=== PATIENT | male | born 1960 | race Two or more races ===

== ENCOUNTER 2020-12-18 16:08 | Inpatient (IN) | payer OTHER ==
[~2020-12-18] VITALS: Ht 165.1 cm; Wt 97.0 kg
[~2020-12-18 16:08] MED LIST: ARIP2TAB PO; HAL5T PO; MELO1TAB56; QUET200T4 PO; VENL75CA78; ZOLP10TA
[2020-12-18 17:22] LABS: Basophils # (auto) 0 10 ^3/uL (0-0.2); Basophils % (auto) 0.3 % (0.0-2.0); Eosinophils # (auto) 0.1 10 ^3/uL (0-0.8); Eosinophils % (auto) 1.6 % (0.0-7.0); Hematocrit 41.5 % (41.0-53.0); Hemoglobin 14.2 g/dL (13.5-17.5); Lymphocytes # (auto) 2.1 10 ^3/uL (0.4-5.4); Lymphocytes % (auto) 34.6 % (10.0-50.0); Mean Corpuscular Hemoglobin 31.6 pg (28.0-32.0); Mean Corpuscular Hgb Conc. 34.1 g/dL (32.0-36.0); Mean Corpuscular Volume 92.8 fL (80.0-100.0); Monocytes # (auto) 0.4 10 ^3/uL (0-1.3); Monocytes % (auto) 6.2 % (0.0-12.0); Neutrophils # (auto) 3.5 10 ^3/uL (1.6-8.6); Neutrophils % (auto) 57.3 % (37.0-80.0); Platelet Count (auto) 187 10^3/uL (140-450); Red Blood Cells 4.48 10^6/uL (4.5-5.90)
[2020-12-18] MEDS ORDERED: NITROGLYCERIN 0.4 MG SL TAB SL ONE (17:30)
[2020-12-18] MEDS ORDERED: ASPirin 81 mg TAB PO ONE (17:30)
[2020-12-18 17:42] LABS: Albumin 3.3 g/dL (3.4-5.0); Anion Gap 8 (5-15); BUN/Creatinine Ratio 14.3; Blood Urea Nitrogen 18 mg/dL (7-18); Calcium 8.9 mg/dL (8.5-10.1); Carbon Dioxide 24 mmol/L (21-32); Chloride 104 mmol/L (98-107); GFR African American 76 mL/min; GFR Non-African American 62 mL/min; Glucose 149 mg/dL (74-106); Magnesium 2.2 mg/dL (1.6-2.6); Potassium 3.6 mmol/L (3.5-5.1); Sodium 136 mmol/L (136-145)
[2020-12-18 17:51] LABS: Alanine Aminotransferase 151 U/L (16-61); Alkaline Phosphatase 111 U/L (45-117); Aspartate Aminotransferase 107 U/L (15-37); Bilirubin, Total 0.3 mg/dL (0.2-1.0); Total Protein 7.4 g/dL (6.4-8.2)
[2020-12-18] MEDS ORDERED: ONDANSETRON HCL 4 MG/2 ML VIAL IV PRN (18:15)
[2020-12-18] MEDS ORDERED: MORPHINE SULF INJ 2 MG/ML SYRINGE 1ML IV PRN (18:15)
[2020-12-18] MEDS ORDERED: ACETAMINOPHEN 500 MG TAB PO PRN (18:15)
[2020-12-18] MEDS ORDERED: DOCUSATE CALCIUM 240 MG CAP PO PRN (18:15)
[2020-12-18] MEDS ORDERED: LORazepam 0.5 MG TAB PO PRN (18:15)
[2020-12-18] MEDS ORDERED: NITROGLYCERIN 0.4 MG SL TAB SL PRN (18:15)
[2020-12-18] MEDS ORDERED: LABETALOL HCL 5 MG/ML 4ML SYRINGE IV PRN (18:15)
[2020-12-18] MEDS ORDERED: QUEtiapine FUMARATE 100 MG TAB PO SCH (22:00)
[2020-12-19] MEDS ORDERED: ARIP2TAB PO (06:10)
[2020-12-19] MEDS ORDERED: FLUO60TA7 PO (06:10)
[2020-12-19 08:04] LABS: Urine WBC None Seen /hpf (0 - 3)
[2020-12-19 08:29] LABS: Amphetamine Screen, Urine NEGATIVE (NEGATIVE); Barbiturate Scree,Urine NEGATIVE (NEGATIVE); Benzodiazephine Screen, Urine NEGATIVE (NEGATIVE); Cannabinoid Screen, Urine NEGATIVE (NEGATIVE); Cocaine Screen, Urine NEGATIVE (NEGATIVE); Opiate Scree,Urine NEGATIVE (NEGATIVE); Phencyclidine Screen, Urine NEGATIVE (NEGATIVE)
[2020-12-19 08:36] LABS: Urine Bacteria NONE SEEN /hpf (None Seen); Urine Blood Negative /uL (Negative)
[2020-12-19 09:22] LABS: Basophils # (auto) 0 10 ^3/uL (0-0.2); Basophils % (auto) 0.4 % (0.0-2.0); Eosinophils # (auto) 0.1 10 ^3/uL (0-0.8); Eosinophils % (auto) 2.7 % (0.0-7.0); Hemoglobin 14.1 g/dL (13.5-17.5); Lymphocytes # (auto) 2.1 10 ^3/uL (0.4-5.4); Lymphocytes % (auto) 41.3 % (10.0-50.0); Mean Corpuscular Hemoglobin 32.4 pg (28.0-32.0); Mean Corpuscular Hgb Conc. 35.1 g/dL (32.0-36.0); Mean Corpuscular Volume 92.2 fL (80.0-100.0); Monocytes # (auto) 0.4 10 ^3/uL (0-1.3); Monocytes % (auto) 7.8 % (0.0-12.0); Neutrophils # (auto) 2.5 10 ^3/uL (1.6-8.6); Neutrophils % (auto) 47.8 % (37.0-80.0); Platelet Count (auto) 174 10^3/uL (140-450); Red Blood Cells 4.34 10^6/uL (4.5-5.90); White Blood Cell 5.2 10^3/uL (4.4-10.8)
[2020-12-19 09:27] LABS: Anion Gap 4 (5-15); Blood Urea Nitrogen 17 mg/dL (7-18); Calcium 8.2 mg/dL (8.5-10.1); Carbon Dioxide 27 mmol/L (21-32); Chloride 109 mmol/L (98-107); Glucose 93 mg/dL (74-106); Potassium 3.6 mmol/L (3.5-5.1); Sodium 140 mmol/L (136-145)
[2020-12-19 09:32] VITALS: BP 125/79
[2020-12-19 09:33] LABS: Alanine Aminotransferase 144 U/L (16-61); Alkaline Phosphatase 103 U/L (45-117); Aspartate Aminotransferase 94 U/L (15-37); BUN/Creatinine Ratio 17.5; Bilirubin, Total 0.5 mg/dL (0.2-1.0); Cholesterol 232 mg/dL (< 200); GFR African American 102 mL/min; GFR Non-African American 84 mL/min; HDL Cholesterol 44 mg/dL (40-59); LDL Cholesterol 151 mg/dL (< 100); Total Protein 7.2 g/dL (6.4-8.2); Triglycerides 219 mg/dL (< 150)
[2020-12-19] MEDS ORDERED: FLUO-125 PO (09:47)
[2020-12-19] MEDS: PANTOPRAZOLE 40 MG TAB PO SCH (09:48)
[2020-12-19] MEDS ORDERED: FLUoxetine HCL 20 MG CAP PO SCH (10:00)
[2020-12-19] MEDS ORDERED: ENOXAPARIN SOD 40 MG/0.4 ML SYRINGE SC SCH (10:00)
[2020-12-19] MEDS ORDERED: ASPirin 81 mg TAB PO ONE (11:45)
[2020-12-19] MEDS: QUEtiapine FUMARATE 100 MG TAB PO SCH ×2 (11:59→22:02)
[2020-12-19] MEDS: FLUoxetine HCL 20 MG CAP PO SCH (12:11)
[2020-12-19 12:48] VITALS: BP 129/82
[2020-12-19 17:21] VITALS: BP 112/85
[2020-12-19] MEDS: METOPROLOL TARTRATE 25 MG TAB PO SCH (22:01)
[2020-12-19] MEDS: ATORVASTATIN 20 MG TAB PO SCH (22:01)
[2020-12-19] MEDS: ENOXAPARIN SOD 100 MG/1 ML SYRINGE SC SCH (22:02)
[2020-12-19 22:30] VITALS: BP 128/82
[2020-12-20 05:00] VITALS: BP 117/74
[2020-12-20 06:43] LABS: Basophils # (auto) 0 10 ^3/uL (0-0.2); Basophils % (auto) 0.3 % (0.0-2.0); Eosinophils # (auto) 0.2 10 ^3/uL (0-0.8); Eosinophils % (auto) 3.3 % (0.0-7.0); Hematocrit 42.2 % (41.0-53.0); Hemoglobin 14.4 g/dL (13.5-17.5); Lymphocytes # (auto) 2.6 10 ^3/uL (0.4-5.4); Lymphocytes % (auto) 46.4 % (10.0-50.0); Mean Corpuscular Hemoglobin 31.9 pg (28.0-32.0); Mean Corpuscular Hgb Conc. 34.2 g/dL (32.0-36.0); Mean Corpuscular Volume 93.2 fL (80.0-100.0); Monocytes # (auto) 0.4 10 ^3/uL (0-1.3); Neutrophils # (auto) 2.4 10 ^3/uL (1.6-8.6); Platelet Count (auto) 184 10^3/uL (140-450); Red Blood Cells 4.53 10^6/uL (4.5-5.90); Red Cell Distribution Width 14.1 % (11.8-14.3); White Blood Cell 5.5 10^3/uL (4.4-10.8)
[2020-12-20 08:17] LABS: Anion Gap 5 (5-15); BUN/Creatinine Ratio 18.9; Blood Urea Nitrogen 20 mg/dL (7-18); Calcium 8.7 mg/dL (8.5-10.1); Carbon Dioxide 25 mmol/L (21-32); Chloride 109 mmol/L (98-107); GFR African American 92 mL/min; GFR Non-African American 76 mL/min; Glucose 103 mg/dL (74-106); Potassium 3.9 mmol/L (3.5-5.1); Sodium 139 mmol/L (136-145)
[2020-12-20 09:00] VITALS: BP 117/75
[2020-12-20] MEDS: FLUoxetine HCL 20 MG CAP PO SCH (10:48)
[2020-12-20] MEDS: QUEtiapine FUMARATE 100 MG TAB PO SCH ×2 (10:48→21:36)
[2020-12-20] MEDS: ENOXAPARIN SOD 100 MG/1 ML SYRINGE SC SCH ×2 (10:48→21:36)
[2020-12-20] MEDS: PANTOPRAZOLE 40 MG TAB PO SCH (10:48)
[2020-12-20] MEDS: ASPirin 81 mg TAB PO SCH (10:48)
[2020-12-20] MEDS: METOPROLOL TARTRATE 25 MG TAB PO SCH ×2 (10:49→21:36)
[2020-12-20 13:00] VITALS: BP 123/64
[2020-12-20 17:26] VITALS: BP 142/72
[2020-12-20] MEDS: ATORVASTATIN 20 MG TAB PO SCH (21:36)
[2020-12-20 22:00] VITALS: BP 131/80
[2020-12-21 05:00] VITALS: BP 139/88
[2020-12-21 06:58] LABS: Basophils # (auto) 0 10 ^3/uL (0-0.2); Basophils % (auto) 0.4 % (0.0-2.0); Eosinophils # (auto) 0.2 10 ^3/uL (0-0.8); Eosinophils % (auto) 3.2 % (0.0-7.0); Hematocrit 41.7 % (41.0-53.0); Hemoglobin 14.5 g/dL (13.5-17.5); Lymphocytes # (auto) 2.6 10 ^3/uL (0.4-5.4); Lymphocytes % (auto) 44.7 % (10.0-50.0); Mean Corpuscular Hemoglobin 32.2 pg (28.0-32.0); Mean Corpuscular Hgb Conc. 34.8 g/dL (32.0-36.0); Mean Corpuscular Volume 92.7 fL (80.0-100.0); Monocytes # (auto) 0.4 10 ^3/uL (0-1.3); Neutrophils # (auto) 2.6 10 ^3/uL (1.6-8.6); Neutrophils % (auto) 44.7 % (37.0-80.0); Nucleated Red Blood Cells % 0.1 %; Platelet Count (auto) 173 10^3/uL (140-450); Red Cell Distribution Width 14.2 % (11.8-14.3); White Blood Cell 5.8 10^3/uL (4.4-10.8)
[2020-12-21 07:13] LABS: INR 1.06 (0.9-1.15)
[2020-12-21 07:32] LABS: Potassium 3.9 mmol/L (3.5-5.1)
[2020-12-21 07:52] LABS: BUN/Creatinine Ratio 15.4; Bilirubin, Total 0.5 mg/dL (0.2-1.0); Calcium 8.4 mg/dL (8.5-10.1); Total Protein 7.2 g/dL (6.4-8.2)
[2020-12-21] MEDS ORDERED: ADENOSINE 82 MG in GIVE UN-DILUTED 0 ML IV STA (08:12)
[2020-12-21 08:38] VITALS: BP 121/84
[2020-12-21 08:51] VITALS: BP 117/75
[2020-12-21] MEDS: FLUoxetine HCL 20 MG CAP PO SCH (09:55)
[2020-12-21] MEDS: ASPirin 81 mg TAB PO SCH (09:55)
[2020-12-21] MEDS: QUEtiapine FUMARATE 100 MG TAB PO SCH ×2 (09:55→21:25)
[2020-12-21] MEDS: PANTOPRAZOLE 40 MG TAB PO SCH (09:56)
[2020-12-21] MEDS: METOPROLOL TARTRATE 25 MG TAB PO SCH ×2 (10:00→21:43)
[2020-12-21] MEDS: ENOXAPARIN SOD 100 MG/1 ML SYRINGE SC SCH ×2 (10:02→21:24)
[2020-12-21 10:40] LABS: Hepatitis A Ab IgM Negative; Hepatitis B Core IgM Negative
[2020-12-21 10:41] LABS: Hepatitis B Surface Antigen Negative (Negative); Hepatitis C Antibody Negative (Negative)
[2020-12-21 12:51] VITALS: BP 108/65
[2020-12-21 16:51] VITALS: BP 123/66
[2020-12-21] MEDS: ATORVASTATIN 20 MG TAB PO SCH (21:24)
[2020-12-21 22:00] VITALS: BP 149/58
[2020-12-22 05:00] VITALS: BP 115/72
[2020-12-22 09:00] VITALS: BP 123/76
[2020-12-22] MEDS: ASPirin 81 mg TAB PO SCH (09:52)
[2020-12-22] MEDS: PANTOPRAZOLE 40 MG TAB PO SCH (09:53)
[2020-12-22] MEDS: METOPROLOL TARTRATE 25 MG TAB PO SCH ×2 (09:53→22:00)
[2020-12-22] MEDS: FLUoxetine HCL 20 MG CAP PO SCH (09:54)
[2020-12-22] MEDS: QUEtiapine FUMARATE 100 MG TAB PO SCH ×2 (09:54→22:35)
[2020-12-22] MEDS: ENOXAPARIN SOD 100 MG/1 ML SYRINGE SC SCH ×2 (09:54→22:00)
[2020-12-22 13:00] VITALS: BP 121/72
[2020-12-22 16:28] LABS: Calcium 8.5 mg/dL (8.5-10.1); Potassium 4.3 mmol/L (3.5-5.1)
[2020-12-22 16:31] LABS: BUN/Creatinine Ratio 13.4; Bilirubin, Total 0.6 mg/dL (0.2-1.0); Total Protein 7.3 g/dL (6.4-8.2)
[2020-12-22 16:57] VITALS: BP 130/80
[2020-12-22 22:00] VITALS: BP 135/78
[2020-12-22] MEDS: ATORVASTATIN 20 MG TAB PO SCH (22:34)
[2020-12-23 05:12] VITALS: BP 121/78
[2020-12-23 06:54] LABS: Calcium 8.1 mg/dL (8.5-10.1); Potassium 3.9 mmol/L (3.5-5.1)
[2020-12-23 06:59] LABS: Bilirubin, Total 0.4 mg/dL (0.2-1.0); Total Protein 7.3 g/dL (6.4-8.2)
[2020-12-23] MEDS ORDERED: SODIUM CHL 0.9% 50 ML ONE (07:44)
[2020-12-23] MEDS ORDERED: ANGIOMAX 250 MG VIAL IV ONE (07:44)
[2020-12-23] MEDS ORDERED: fentaNYL CITRATE 100 MCG/2 ML VL ONE (07:44)
[2020-12-23] MEDS ORDERED: VERAPAMIL 2.5MG/ML INJ 2ML VIAL IV ONE (07:44)
[2020-12-23] MEDS ORDERED: MIDAZOLAM HCL 1MG/1ML-2 ML VIAL ONE (07:44)
[2020-12-23] MEDS ORDERED: HEPARIN SODIUM (PORCINE) 5000 UNITS/ML 1ML VIAL ONE (07:44)
[2020-12-23] MEDS ORDERED: LISINOPRIL 5 MG TAB PO SCH (10:00)
[2020-12-23] MEDS ORDERED: METOPROLOL TARTRATE 25 MG TAB PO SCH (10:00)
[2020-12-23] MEDS: ASPirin 81 mg TAB PO SCH (10:53)
[2020-12-23] MEDS: QUEtiapine FUMARATE 100 MG TAB PO SCH (10:56)
[2020-12-23] MEDS: PANTOPRAZOLE 40 MG TAB PO SCH (10:56)
[2020-12-23] MEDS: FLUoxetine HCL 20 MG CAP PO SCH (10:56)
[2020-12-23 12:00] VITALS: BP 123/80
[2020-12-23 16:00] VITALS: BP 125/70
[2020-12-23 16:14] VITALS: BP 115/69
== END 2020-12-23 17:35 | disposition home or self-care (01) | DRG 287 ==
LOC: ER 16:08 → TELE 18:04 → TELE-CENTR 12-19 04:55
PROVIDERS: ADMIT Family Medicine; ATTEND Internal Medicine
PROC: 4A023N7 Measurement of Cardiac Sampling and Pressure, Left Heart, Percutaneous Approach (ICD-10-PCS; principal; 2020-12-23)
PROC: B211YZZ Fluoroscopy of Multiple Coronary Arteries using Other Contrast (ICD-10-PCS; 2020-12-23)
PROC: B215YZZ Fluoroscopy of Left Heart using Other Contrast (ICD-10-PCS; 2020-12-23)
PROC: B240ZZ3 Ultrasonography of Single Coronary Artery, Intravascular (ICD-10-PCS; 2020-12-23)
DX: I25.10 Atherosclerotic heart disease of native coronary artery without angina pectoris (principal); E44.0 Moderate protein-calorie malnutrition; E78.5 Hyperlipidemia, unspecified; F25.9 Schizoaffective disorder, unspecified; F10.11 Alcohol abuse, in remission; G47.00 Insomnia, unspecified; I12.9 Hypertensive chronic kidney disease with stage 1 through stage 4 chronic kidney disease, or unspecified chronic kidney disease; E66.01 Morbid (severe) obesity due to excess calories; Z20.822 Contact with and (suspected) exposure to COVID-19; Z82.49 Family history of ischemic heart disease and other diseases of the circulatory system; N18.9 Chronic kidney disease, unspecified; Z68.36 Body mass index [BMI] 36.0-36.9, adult
CPT/HCPCS: 36415; 71046; 78452; 80048; 80053; 80061; 80074; 80307; 81001; 83036; 83735; 84443; 84484; 85025; 85610; 87426; 93005; 93017; 93306; 93458; 99152; 99153; C1887; G0378; J0153; J2250

== ENCOUNTER 2021-05-17 13:52 | Inpatient (IN) | payer MEDICARE, OTHER ==
[~2021-05-17] VITALS: Ht 165.1 cm; Wt 89.7 kg
[~2021-05-17 13:52] MED LIST changes: +FLUO-125 PO; -HAL5T PO; -MELO1TAB56; -VENL75CA78
[2021-05-17] MEDS ORDERED: ACCU-CHEK COMFORT CURVE STRIP VI ONE (14:15)
[2021-05-17 14:35] LABS: Basophils # (auto) 0 10 ^3/uL (0-0.2); Basophils % (auto) 0.1 % (0.0-2.0); Eosinophils # (auto) 0 10 ^3/uL (0-0.8); Hematocrit 42.3 % (41.0-53.0); Hemoglobin 14.8 g/dL (13.5-17.5); Lymphocytes # (auto) 1.1 10 ^3/uL (0.4-5.4); Lymphocytes % (auto) 12.1 % (10.0-50.0); Mean Corpuscular Hemoglobin 31.4 pg (28.0-32.0); Mean Corpuscular Hgb Conc. 34.9 g/dL (32.0-36.0); Mean Corpuscular Volume 89.9 fL (80.0-100.0); Monocytes # (auto) 0.4 10 ^3/uL (0-1.3); Monocytes % (auto) 4.9 % (0.0-12.0); Neutrophils # (auto) 7.3 10 ^3/uL (1.6-8.6); Neutrophils % (auto) 82.9 % (37.0-80.0); White Blood Cell 8.8 10^3/uL (4.4-10.8)
[2021-05-17 15:00] LABS: Alanine Aminotransferase 91 U/L (16-61); Albumin 3.1 g/dL (3.4-5.0); Anion Gap 10 (5-15); Aspartate Aminotransferase 138 U/L (15-37); BUN/Creatinine Ratio 9.5; Blood Urea Nitrogen 23 mg/dL (7-18); Calcium 8.3 mg/dL (8.5-10.1); Carbon Dioxide 19 mmol/L (21-32); Chloride 106 mmol/L (98-107); GFR African American 36 mL/min; GFR Non-African American 30 mL/min; Glucose 118 mg/dL (74-106); Potassium 3.9 mmol/L (3.5-5.1); Sodium 135 mmol/L (136-145)
[2021-05-17 15:04] LABS: Lactic Acid w/Reflex 2.2 mmol/L (0.4-2.0)
[2021-05-17 15:07] LABS: Alkaline Phosphatase 84 U/L (45-117); Total Protein 7.7 g/dL (6.4-8.2)
[2021-05-17] MEDS ORDERED: SODIUM CHLORIDE 0.9% 1,000 ML IV ONE (17:00)
[2021-05-17] MEDS ORDERED: NITROGLYCERIN 0.4 MG SL TAB SL PRN (17:00)
[2021-05-17] MEDS ORDERED: MORPHINE SULF INJ 2 MG/ML SYRINGE 1ML IV PRN (17:00)
[2021-05-17] MEDS ORDERED: LORazepam 2MG/ML-1ML VIAL IV PRN (17:00)
[2021-05-17] MEDS ORDERED: LORazepam 2MG/ML-1ML VIAL IV ONE (17:00)
[2021-05-17] MEDS ORDERED: cefTRIAXone 1GM/50ML D5W 50 ML IV ONE (17:15)
[2021-05-17 17:35] LABS: Urine Bacteria FEW /hpf (None Seen); Urine Blood 3+ /uL (Negative); Urine Hyaline Cast MANY /lpf (0 - 2); Urine Mucus FEW (None Seen); Urine Specific Gravity 1.023 (1.001-1.035); Urine WBC 6 /hpf (0 - 3)
[2021-05-17 17:50] LABS: Amphetamine Screen, Urine NEGATIVE (NEGATIVE); Barbiturate Scree,Urine NEGATIVE (NEGATIVE); Cannabinoid Screen, Urine NEGATIVE (NEGATIVE); Cocaine Screen, Urine POSITIVE (NEGATIVE); Opiate Scree,Urine NEGATIVE (NEGATIVE); Phencyclidine Screen, Urine NEGATIVE (NEGATIVE)
[2021-05-17 17:56] LABS: Thyroid Stimulating Hormone 0.62 uIU/mL (0.358-3.74)
[2021-05-17 17:58] LABS: Benzodiazephine Screen, Urine NEGATIVE (NEGATIVE)
[2021-05-17] MEDS ORDERED: REMDESIVIR PER PHARMACY 0 ML IV SCH (18:00)
[2021-05-17] MEDS ORDERED: IVERMECTIN 3 MG TAB PO ONE (18:13)
[2021-05-17] MEDS ORDERED: HALOPERIDOL LACTATE 5 MG/ML INJ VIAL IM ONE (18:15)
[2021-05-17] MEDS: DexAMETHasone SOD PHOS 10MG/1ML VIAL INJ IV SCH (18:25)
[2021-05-17] MEDS ORDERED: AZITHROMYCIN 500MG/ 250ML 250 ML IV ONE (18:30)
[2021-05-17] MEDS: LORazepam 2MG/ML-1ML VIAL IV PRN ×2 (18:42→23:46)
[2021-05-17] MEDS: ASCORBIC ACID 1,000 MG TAB PO SCH (22:11)
[2021-05-17] MEDS: CHOLECALCIFEROL (VITD3) 2,000 UNIT CAP/TAB PO SCH (22:11)
[2021-05-17] MEDS: ZINC SULFATE 220mg CAP or TAB PO SCH (22:11)
[2021-05-17] MEDS: ENOXAPARIN SOD 30 MG/0.3 ML SYRINGE SC SCH (22:12)
[2021-05-17] MEDS: ALBUTEROL SULF HFA 90MCG INH 200DOSE IN PRN (22:14)
[2021-05-17 23:18] VITALS: BP 156/90
[2021-05-18] VITALS (7 sets, daily range): BP systolic 143–158; BP diastolic 72–97
[2021-05-18] MEDS: LORazepam 2MG/ML-1ML VIAL IV PRN (03:19)
[2021-05-18 06:45] LABS: Basophils # (auto) 0 10 ^3/uL (0-0.2); Basophils % (auto) 0.2 % (0.0-2.0); Eosinophils # (auto) 0 10 ^3/uL (0-0.8); Hematocrit 40.4 % (41.0-53.0); Hemoglobin 14.2 g/dL (13.5-17.5); Lymphocytes # (auto) 0.6 10 ^3/uL (0.4-5.4); Lymphocytes % (auto) 8.4 % (10.0-50.0); Mean Corpuscular Hemoglobin 31.6 pg (28.0-32.0); Mean Corpuscular Hgb Conc. 35.1 g/dL (32.0-36.0); Mean Corpuscular Volume 89.9 fL (80.0-100.0); Monocytes # (auto) 0.4 10 ^3/uL (0-1.3); Monocytes % (auto) 4.9 % (0.0-12.0); Neutrophils # (auto) 6.5 10 ^3/uL (1.6-8.6); Neutrophils % (auto) 86.5 % (37.0-80.0); Red Blood Cells 4.49 10^6/uL (4.5-5.90); White Blood Cell 7.5 10^3/uL (4.4-10.8)
[2021-05-18 07:04] LABS: Albumin 2.9 g/dL (3.4-5.0); Calcium 8.4 mg/dL (8.5-10.1); Potassium 3.4 mmol/L (3.5-5.1)
[2021-05-18 07:09] LABS: Bilirubin, Total 0.9 mg/dL (0.2-1.0); Total Protein 7.6 g/dL (6.4-8.2)
[2021-05-18 07:12] LABS: BUN/Creatinine Ratio 16.4
[2021-05-18] MEDS: cefTRIAXone 1GM/50ML D5W 50 ML IV SCH (08:54)
[2021-05-18] MEDS: ASCORBIC ACID 1,000 MG TAB PO SCH (08:55)
[2021-05-18] MEDS: ENOXAPARIN SOD 30 MG/0.3 ML SYRINGE SC SCH (08:55)
[2021-05-18] MEDS: CHOLECALCIFEROL (VITD3) 2,000 UNIT CAP/TAB PO SCH (08:55)
[2021-05-18] MEDS: DexAMETHasone SOD PHOS 10MG/1ML VIAL INJ IV SCH (08:55)
[2021-05-18] MEDS: ZINC SULFATE 220mg CAP or TAB PO SCH (08:56)
[2021-05-18] MEDS ORDERED: AZITHROMYCIN 500MG/ 250ML 250 ML IV SCH (10:00)
[2021-05-18] MEDS: FOLIC ACID 1 MG TAB PO SCH (10:00)
[2021-05-18] MEDS: MULTIPLE VITAMIN TAB PO SCH (10:00)
[2021-05-18] MEDS: THIAMINE 100mg/ml INJ (200mg/2ml VIAL) IV SCH (13:40)
[2021-05-18] MEDS ORDERED: REMDESIVIR 200 MG in NS 210ml LOADING DOSE ADULT IV ONE (15:00)
[2021-05-18] MEDS ORDERED: REMDESIVIR PER PHARMACY 0 ML IV SCH (16:45)
[2021-05-18] MEDS: Ensure HIGH Protein Chocolate 8oz Bottle PO SCH (18:00)
[2021-05-18] MEDS: QUEtiapine FUMARATE 100 MG TAB PO SCH (21:08)
[2021-05-18] MEDS: ENOXAPARIN SOD 40 MG/0.4 ML SYRINGE SC SCH (21:15)
[2021-05-19] MEDS: QUEtiapine FUMARATE 100 MG TAB PO SCH ×2 (00:37→22:15)
[2021-05-19] MEDS: LORazepam 2MG/ML-1ML VIAL IV PRN ×3 (02:38→13:10)
[2021-05-19 05:00] VITALS: BP 116/63
[2021-05-19 06:33] LABS: Potassium 3.4 mmol/L (3.5-5.1)
[2021-05-19 06:51] LABS: Albumin 2.9 g/dL (3.4-5.0); BUN/Creatinine Ratio 28.8; Calcium 8.3 mg/dL (8.5-10.1); Magnesium 2.3 mg/dL (1.6-2.6); Total Protein 7.3 g/dL (6.4-8.2)
[2021-05-19 08:30] VITALS: BP 125/84
[2021-05-19] MEDS: Ensure HIGH Protein Chocolate 8oz Bottle PO SCH ×3 (08:30→17:37)
[2021-05-19] MEDS ORDERED: POTASSIUM EFFERVESENT TAB 25 MEQ PO ONE (09:00)
[2021-05-19] MEDS: THIAMINE 100mg/ml INJ (200mg/2ml VIAL) IV SCH (09:37)
[2021-05-19] MEDS: ZINC SULFATE 220mg CAP or TAB PO SCH (09:37)
[2021-05-19] MEDS: FOLIC ACID 1 MG TAB PO SCH (09:37)
[2021-05-19] MEDS: cefTRIAXone 1GM/50ML D5W 50 ML IV SCH (09:37)
[2021-05-19] MEDS: MULTIPLE VITAMIN TAB PO SCH (09:38)
[2021-05-19] MEDS: FLUoxetine HCL 20 MG CAP PO SCH (09:38)
[2021-05-19] MEDS: DexAMETHasone SOD PHOS 10MG/1ML VIAL INJ IV SCH (09:38)
[2021-05-19] MEDS: CHOLECALCIFEROL (VITD3) 2,000 UNIT CAP/TAB PO SCH (09:38)
[2021-05-19] MEDS: ASCORBIC ACID 1,000 MG TAB PO SCH (09:39)
[2021-05-19] MEDS: AZITHROMYCIN 250 MG TAB PO SCH (09:39)
[2021-05-19] MEDS: ENOXAPARIN SOD 40 MG/0.4 ML SYRINGE SC SCH ×2 (09:41→22:16)
[2021-05-19 13:00] VITALS: BP 141/84
[2021-05-19] MEDS ORDERED: ZOLPIDEM TARTRATE 5 MG TAB PO PRN (14:00)
[2021-05-19] MEDS: REMDESIVIR 100mg 100 MG in SODIUM CHL 0.9% 230 ML IV SCH (14:19)
[2021-05-19 17:00] VITALS: BP 143/88
[2021-05-19 21:24] VITALS: BP 135/97
[2021-05-20] VITALS (8 sets, daily range): BP systolic 133–145; BP diastolic 75–91
[2021-05-20 06:09] LABS: Calcium 8.1 mg/dL (8.5-10.1)
[2021-05-20 06:11] LABS: Potassium 4.2 mmol/L (3.5-5.1)
[2021-05-20] MEDS: Ensure HIGH Protein Chocolate 8oz Bottle PO SCH ×3 (08:00→17:19)
[2021-05-20] MEDS: ALBUTEROL SULF HFA 90MCG INH 200DOSE IN PRN (08:58)
[2021-05-20] MEDS: cefTRIAXone 1GM/50ML D5W 50 ML IV SCH (09:54)
[2021-05-20] MEDS: DexAMETHasone SOD PHOS 4 MG/1ML SDV INJ IV SCH (09:54)
[2021-05-20] MEDS: FLUoxetine HCL 20 MG CAP PO SCH (09:55)
[2021-05-20] MEDS: ASCORBIC ACID 1,000 MG TAB PO SCH (09:55)
[2021-05-20] MEDS: THIAMINE HCL 100 MG TAB PO SCH (09:55)
[2021-05-20] MEDS: FOLIC ACID 1 MG TAB PO SCH (09:55)
[2021-05-20] MEDS: ZINC SULFATE 220mg CAP or TAB PO SCH (09:55)
[2021-05-20] MEDS: CHOLECALCIFEROL (VITD3) 2,000 UNIT CAP/TAB PO SCH (09:55)
[2021-05-20] MEDS: MULTIPLE VITAMIN TAB PO SCH (09:55)
[2021-05-20] MEDS: AZITHROMYCIN 250 MG TAB PO SCH (09:56)
[2021-05-20] MEDS: ENOXAPARIN SOD 40 MG/0.4 ML SYRINGE SC SCH ×2 (09:56→22:40)
[2021-05-20] MEDS: REMDESIVIR 100mg 100 MG in SODIUM CHL 0.9% 230 ML IV SCH (15:12)
[2021-05-20] MEDS: QUEtiapine FUMARATE 100 MG TAB PO SCH (22:40)
[2021-05-21 05:00] VITALS: BP 138/91
[2021-05-21] MEDS: ALBUTEROL SULF HFA 90MCG INH 200DOSE IN PRN ×2 (07:17→22:21)
[2021-05-21 07:42] LABS: Albumin 2.7 g/dL (3.4-5.0); Calcium 8.1 mg/dL (8.5-10.1); Potassium 3.9 mmol/L (3.5-5.1)
[2021-05-21 07:45] LABS: BUN/Creatinine Ratio 36.9; Bilirubin, Total 0.7 mg/dL (0.2-1.0); Total Protein 6.9 g/dL (6.4-8.2)
[2021-05-21] MEDS: Ensure HIGH Protein Chocolate 8oz Bottle PO SCH ×3 (08:00→18:00)
[2021-05-21] MEDS: FOLIC ACID 1 MG TAB PO SCH (08:39)
[2021-05-21] MEDS: DexAMETHasone SOD PHOS 4 MG/1ML SDV INJ IV SCH (08:39)
[2021-05-21] MEDS: THIAMINE HCL 100 MG TAB PO SCH (08:39)
[2021-05-21] MEDS: cefTRIAXone 1GM/50ML D5W 50 ML IV SCH (08:39)
[2021-05-21] MEDS: ASCORBIC ACID 1,000 MG TAB PO SCH (08:40)
[2021-05-21] MEDS: CHOLECALCIFEROL (VITD3) 2,000 UNIT CAP/TAB PO SCH (08:40)
[2021-05-21] MEDS: MULTIPLE VITAMIN TAB PO SCH (08:40)
[2021-05-21] MEDS: FLUoxetine HCL 20 MG CAP PO SCH (08:40)
[2021-05-21] MEDS: AZITHROMYCIN 250 MG TAB PO SCH (08:40)
[2021-05-21] MEDS: ZINC SULFATE 220mg CAP or TAB PO SCH (08:40)
[2021-05-21] MEDS: ENOXAPARIN SOD 40 MG/0.4 ML SYRINGE SC SCH ×2 (08:41→21:15)
[2021-05-21] MEDS: REMDESIVIR 100mg 100 MG in SODIUM CHL 0.9% 230 ML IV SCH (15:11)
[2021-05-21] MEDS: QUEtiapine FUMARATE 100 MG TAB PO SCH (21:14)
[2021-05-21 22:00] VITALS: BP 153/96
[2021-05-22 05:00] VITALS: BP 145/96
[2021-05-22] MEDS: Ensure HIGH Protein Chocolate 8oz Bottle PO SCH ×3 (08:00→18:27)
[2021-05-22 08:28] LABS: Albumin 2.8 g/dL (3.4-5.0); Calcium 8.5 mg/dL (8.5-10.1); Potassium 4.1 mmol/L (3.5-5.1)
[2021-05-22 08:33] LABS: Bilirubin, Total 0.7 mg/dL (0.2-1.0); Total Protein 7.3 g/dL (6.4-8.2)
[2021-05-22] MEDS: cefTRIAXone 1GM/50ML D5W 50 ML IV SCH (08:43)
[2021-05-22] MEDS: FOLIC ACID 1 MG TAB PO SCH (08:43)
[2021-05-22] MEDS: THIAMINE HCL 100 MG TAB PO SCH (08:43)
[2021-05-22] MEDS: DexAMETHasone SOD PHOS 4 MG/1ML SDV INJ IV SCH (08:43)
[2021-05-22] MEDS: ZINC SULFATE 220mg CAP or TAB PO SCH (08:44)
[2021-05-22] MEDS: ASCORBIC ACID 1,000 MG TAB PO SCH (08:44)
[2021-05-22] MEDS: FLUoxetine HCL 20 MG CAP PO SCH (08:44)
[2021-05-22] MEDS: MULTIPLE VITAMIN TAB PO SCH (08:44)
[2021-05-22] MEDS: CHOLECALCIFEROL (VITD3) 2,000 UNIT CAP/TAB PO SCH (08:44)
[2021-05-22] MEDS: AZITHROMYCIN 250 MG TAB PO SCH (08:45)
[2021-05-22] MEDS: ENOXAPARIN SOD 40 MG/0.4 ML SYRINGE SC SCH (08:45)
[2021-05-22 09:00] VITALS: BP 141/81
[2021-05-22] MEDS: ALBUTEROL SULF HFA 90MCG INH 200DOSE IN PRN (12:01)
[2021-05-22 13:00] VITALS: BP 139/88
[2021-05-22] MEDS: REMDESIVIR 100mg 100 MG in SODIUM CHL 0.9% 230 ML IV SCH (16:02)
[2021-05-22 17:00] VITALS: BP 142/83
== END 2021-05-22 19:00 | disposition home health service (06) | DRG 871 ==
LOC: EDBD 13:52 → ER 13:52 → TELE 16:51 → TELE-EAST 20:40
PROVIDERS: ADMIT Nurse Practitioner Acute Care; ATTEND Internal Medicine Nephrology
PROC: XW033E5 Introduction of Remdesivir Anti-infective into Peripheral Vein, Percutaneous Approach, New Technology Group 5 (ICD-10-PCS; principal; 2021-05-18)
DX: A41.89 Other specified sepsis (principal); U07.1 COVID-19; J12.82 Pneumonia due to coronavirus disease 2019; J96.01 Acute respiratory failure with hypoxia; G92 Toxic encephalopathy; N17.0 Acute kidney failure with tubular necrosis; J93.9 Pneumothorax, unspecified; D89.833 Cytokine release syndrome, grade 3; K74.60 Unspecified cirrhosis of liver; F10.20 Alcohol dependence, uncomplicated; F25.9 Schizoaffective disorder, unspecified; E66.9 Obesity, unspecified; F14.10 Cocaine abuse, uncomplicated; N18.2 Chronic kidney disease, stage 2 (mild); F41.9 Anxiety disorder, unspecified; F32.9 Major depressive disorder, single episode, unspecified; Z79.899 Other long term (current) drug therapy; Z79.891 Long term (current) use of opiate analgesic; Z79.01 Long term (current) use of anticoagulants
CPT/HCPCS: 36415; 70450; 71045; 71250; 74176; 80048; 80053; 80307; 81001; 82140; 82962; 83605; 83615; 83735; 83880; 84443; 84484; 85025; 85379; 86141; 87040; 87426; 93005; 94640; 96361; 96365; 96375; G0378; J0696; J1100

== ENCOUNTER 2025-02-23 22:26 | Emergency (ER) | payer OTHER, MEDICAID ==
[~2025-02-23] VITALS: Ht 167.6 cm; Wt 86.2 kg
[2025-02-23 22:34] VITALS: BP 172/101; PULSE 96; RESP 18; TEMP 98.4; O2SAT 97
--- NOTE | 2025-02-23 23:43 | ED.PDOC ---
Back pain HPI HPI Comments 64-YEAR-OLD MALE PRESENTS TO THE ED VIA AMBULANCE CHIEF COMPLAINT LOW BACK PAIN. PATIENT STATES BEEN GOING ON FOR 2 WEEKS PROGRESSIVELY GOTTEN WORSE OVER THE PAST 48 HOURS STATES HAS BEEN TAKING IBUPROFEN LAST DOSE WAS LAST NIGHT REPORTS LITTLE RELIEF. HE IS COMPLAINING OF MID LOWER BACK PAIN SHARP IN NATURE RADIATING DOWN INTO HIS RIGHT GLUTE DOWN THE LATERAL ASPECT OF HIS RIGHT LEG TO THE KNEE HE DOES NOTE SOME NUMBNESS AND TINGLING AT THE KNEE. HE STATES PENDING REFERRAL TO PAIN MANAGEMENT AND IMAGING FROM HIS PCP. DENIES HAVING ANY MRI STATES X-RAY SEVERAL WEEKS AGO HE DOES NOT RECALL WITH THE RESULTS WERE. DENIES SADDLE ANESTHESIA, LOSS OF BOWEL OR BLADDER CONTROL, OR WEAKNESS. Chief Complaint: Back Pain Time Seen by MD: 23:00 Primary Care Provider: JILLIAN Reviewed Notes: Nurses Notes, Medications, Allergies Allergies: Coded Allergies: NO KNOWN ALLERGIES (Unverified , 05/17/21) Home Meds Active Scripts Methylprednisolone (Medrol Dosepak) 4 Mg Chris, 4 MG PO UD for 6 Days, #21 TAB UAD Prov:SAUNDRA DAY [facility] 02/24/25 Baclofen (Baclofen) 10 Mg Tab, 10 MG PO TID for 7 Days, #21 TAB Prov:SAUNDRA DAY [facility] 02/24/25 Reported Medications Fluoxetine Hcl (Fluoxetine Hcl) 20 Mg Cap, 20 MG PO DAILY for 30 Days, MG 12/19/20 Aripiprazole (Abilify) 2 Mg Tab, 2 MG PO DAILY, TAB 12/19/20 Quetiapine Fumerate (Seroquel Xr) 200 Mg Tab, 200 MG PO HS for 30 Days, MG 07/20/14 Zolpidem Tartrate (Ambien) 10 Mg Tab 12/30/12 Information Source: Patient Mode of Arrival: EMS Past Medical History PAST MEDICAL HISTORY: Anxiety, Depression, HTN, Schizophrenia Surgical History: Hernia Repair Family History Family History: Unobtainable Social History Smoker: Non-Smoker Alcohol: Heavy Drugs: Denies Drug Use Lives In: Home Constitutional: denies: chills, diaphoresis, fatigue, fever, malaise, sweats, weakness, others EENTM: denies: blurred vision, double vision, ear bleeding, ear discharge, ear drainage, ear pain, ear ringing, eye pain, eye redness, hearing loss, mouth kristen n, mouth swelling, nasal discharge, nose bleeding, nose congestion, nose pain, photophobia, tearing, throat pain, throat swelling, voice changes, others Respiratory: denies: cough, hemoptysis, orthopnea, SOB at rest, shortness of breath, SOB with excertion, stridor, wheezing, others Cardiovascular: denies: chest pain, dizzy spells, diaphoresis, Dyspnea on exertion, edema, irregular heart beat, left arm pain, lightheadedness, palpitations, PND, syncope, others Gastrointestinal: denies: abdomen distended, abdominal pain, blood streaked bowels, constipated, diarrhea, dysphagia, difficulty swallowing, hematemesis, melena, nausea, poor appetite, poor fluid intake, rectal bleeding, rectal pain, vomiting, others Genitourinary: denies: burning, dysuria, flank pain, frequency, hematuria, incontinence, penile discharge, penile sore, pain, testicle pain, testicle swelling, urgency, others Neurological: denies: dizziness, fainting, headache, left sided numbness, left sided weakness, numbness, paresthesia, pre-existing deficit, right sided numbness, right sided weakness, seizure, speech problems, tingling, tremors, weakness, others Musculoskeletal: reports: back pain; denies: gout, joint pain, joint swelling, muscle pain, muscle stiffness, neck pain, others Integumetry: denies: bruises, change in color, change in hair/nails, dryness, laceration, lesions, lumps, rash, wounds, others Allergic/Immunocompromised: denies: Difficulty Healing, Frequent Infections, Hives, Itching, others Hematologic/Lymphatic: denies: anemia, blood clots, easy bleeding, easy bruising, swollen glands, others Endocrine: denies: excessive hunger, excessive sweating, excessive thirst, excessive urination, flushing, intolerance to cold, intolerance to heat, unexplained weight gain, unexplained weight loss, others Psychiatric: denies: anxiety, bipolar disorder, depression, hopeless, panic disorder, schizophrenia, sleepless, suicidal, others Physical Exam General Appearance: No Apparent Distress, Normal HEENT: Pharynx Normal Neck: Full Range of Motion, Non-Tender Respiratory: Lungs Clear, No Respiratory Distress, Normal Breath Sounds Cardiovascular: No Edema, No JVD, No Murmur, No Gallop, Normal Peripheral Pulses, Regular Rate/Rhythm Breast Exam: Deferred Gastrointestinal: No Organomegaly, Non Tender, No Pulsatile Mass, Normal Bowel Sounds, Soft Genitalia: Deferred Pelvic: Deferred Rectal: Deferred Extremities: No calf tenderness, Normal capillary refill, Normal inspection, Normal range of motion, Non-tender, No pedal edema Musculoskeletal : Location: Right Extremity Location: Back (MODERATE TENDERNESS PALPATED OVER L2 THROUGH L4 LUMBAR SPINE. NO NOTED CREPITUS OR STEP-OFFS. POSITIVE STRAIGHT LEG RAISE RIGHT SIDE FOLLOWING LATERAL ASPECT OF HIS RIGHT LEG INTO THE ANTERIOR KNEE. STRENGTH SENSORY AND MOTION INTACT POSITIVE PEDAL PULSE) Apperance: Normal Neurologic: Alert, networks computer consultant II-XII nml as Tested, No Motor Deficits, Normal Affect, Normal Mood, No Sensory Deficits Cerebellar Function: Normal Reflexes: Normal Skin: Dry, Normal Color, Warm Lymphatic: No Adenopathy Was a procedure done? Was a procedure done?: No Back Pain Differential Dx Differential Diagnosis: Fracture, Musculoskeletal Pain X-Ray, Labs, Meds, VS Vital Signs Date Time Temp Pulse Resp B/P (MAP) Pulse Ox O2 Delivery O2 Flow Rate FiO2 02/24/25 00:58 Room Air 02/23/25 22:34 98.4 96 18 172/101 (124) 97 98.4 02/23/25 22:34 98.4 96 18 172/101 (124) 98 98.4 Current Medications Medications (Trade) Dose Ordered Sig/New Route Start Time Stop Time Status Last Admin Ketorolac Tromethamine (Toradol Injection) 60 mg ONCE ONCE IM 02/24/25 00:00 02/24/25 00:01 DC 02/24/25 00:21 Dexamethasone Sodium Phosphate (Decadron Injection) 10 mg ONCE ONCE IM 02/24/25 00:00 02/24/25 00:01 DC 02/24/25 00:21 Acetaminophen/ Hydrocodone Bitart ([place]arshall 5/325MG Tab) 2 tab ONCE ONCE PO 02/24/25 00:00 02/24/25 00:01 DC 02/24/25 00:20 X-Ray, Labs, Meds, VS Comment CT LUMBAR SPINE RESULTS SHOW DISPLACED 12TH RIB FRACTURE AT THE COSTOVERTEBRAL JUNCTION. NO MENTION OF L5-S1 DEGENERATIVE DISC DISEASE. IMAGING REVIEWED BY THIS PROVIDER DOES SHOW L4-L5 DISC BULGE. PATIENT WAS GIVEN TORADOL 60 MG IM, DECADRON 10 MG IM AND NORCO 10 MG P.O.. REPORTS IMPROVEMENT IN PAIN AND FUNCTION RATES PAIN 1/10 ON PAIN SCALE HE IS REQUESTING DISCHARGE AT THIS TIME. SCRIPT MEDROL DOSEPAK AND MUSCLE RELAXER. ADVISED TO TAKE MEDICATIONS PRESCRIBED SIDE EFFECTS DISCUSSED. HAS A FOLLOW UP WITH HIS PCP 2 DAYS IMAGING REPORT GIVEN ADVISED TO HAVE AN OUTPATIENT MRI OF HIS LUMBAR SPINE. WE DISCUSSED ER RETURN PRECAUTIONS PATIENT INDICATES UNDERSTANDING AND AGREES WITH DISCHARGE PLAN OF CARE Time of 1ST Reevaluation: 23:59 Reevaluation 1ST: Unchanged Patient Education/Counseling: Diagnosis, Treatment, Prognosis, Need For Follow Up Family Education/Counseling: No Family Present Departure 1 Departure Time of Disposition: 00:53 Impression: Primary Impression: Musculoskeletal pain Additional Impressions: Lumbar radiculopathy Lumbar sprain Qualified Codes: S33.5XXA - Sprain of ligaments of lumbar spine, initial encounter Right rib fracture Qualified Codes: S22.31XA - Fracture of one rib, right side, initial encounter for closed fracture Disposition: HOME / SELF CARE / HOMELESS Condition: Stable e-Prescriptions Methylprednisolone (Medrol Dosepak) 4 Mg Chris 4 MG PO UD for 6 Days, #21 TAB UAD Prov: SAUNDRA DAY 02/24/25 Baclofen (Baclofen) 10 Mg Tab 10 MG PO TID for 7 Days, #21 TAB Prov: SAUNDRA DAY 02/24/25 Discharged With: Self Critical Care Note Critical Care Time?: No Stability Stability form required: No SAUNDRA DAY Feb 23, 2025 23:43
[2025-02-24] MEDS: HYDROcodone-ACET 5/325MG TAB PO ONE (00:20)
[2025-02-24] MEDS: KETOROLAC TROMETH 60MG/2ML VIAL IM ONE (00:21)
[2025-02-24] MEDS: DexAMETHasone SOD PHOS 10MG/1ML VIAL INJ IM ONE (00:21)
--- NOTE | 2025-02-24 00:43 | DVH ---
CT LS SPINE WO CONTRAST INDICATION: BACK PAIN RIGHT SIDE RADICULOPATHY : 64 old Male BACK PAIN RIGHT SIDE RADICULOPATHY EXAM DATE: 02/24/2025 12:12 AM COMPARISON: None RADIATION DOSE: CTDIvol: 37 mGy, DLP: 1182 mGy*cm PROCEDURE: Utilizing the CT scanner, contiguous axial scans were obtained through the lumbar spine. C oronal and sagittal reformatted images were then generated. All CT scans at this medical facility are performed using dose modulation techniques as appropriate t o a performed exam including the following: Automated exposure control was utilized; adjustment of th e MA and/or KV according to patient size; and use of iterative reconstruction technique. Findings/ IMPRESSION: Displaced fracture of the right 12th rib at the costovertebral junction. No significant degenerative changes. Moderate degenerative disc disease at L5-S1. Adjacent soft tissue structures are normal.
[2025-02-24] MEDS ORDERED: BACL10TA PO (00:54)
[2025-02-24] MEDS ORDERED: METH4PAK PO (00:54)
== END 2025-02-24 01:18 | disposition home or self-care (01) ==
LOC: EDBD 22:26 → ER 22:28
DX: S22.31XA Fracture of one rib, right side, initial encounter for closed fracture (principal); S33.5XXA Sprain of ligaments of lumbar spine, initial encounter; M79.18 Myalgia, other site; F41.9 Anxiety disorder, unspecified; F20.9 Schizophrenia, unspecified; I10 Essential (primary) hypertension; Z98.890 Other specified postprocedural states; Z79.899 Other long term (current) drug therapy
CPT/HCPCS: 72131; 96372; 99285; J1100; J1885

== ENCOUNTER 2025-10-12 19:17 | Inpatient (IN) | payer OTHER ==
[~2025-10-12] VITALS: Ht 165.1 cm; Wt 98.0 kg
[~2025-10-12 19:17] MED LIST changes: +ATOR20TA50 PO; +DULO1CAP6 PO; +ERGO1CAP12 PO; +ESZO1TAB15 PO; +GABA-339 PO; +HYDR1TAB97 PO; +IBUP-1455 PO; +LISI10TA34 PO; +MET25T PO; +QUET50TA PO; +VALB80CA PO
--- NOTE | 2025-10-12 19:35 | ED.PDOC ---
History of Present Illness HPI Comments 64 y/o obese M is BIBA from private residence for c/c of syncope. Per EMS personnel report, patient had a sudden episode of syncope, earlier, this evening. No reported signs of trauma or incontinence. History of schizoaffective disorder, chronic back pain, and hypertension. On scene, patient was found in a supine position with a systolic pressure in the 90's. Unable to obtain orthostatics, due to patient passing out, again. Patient comments on being dizzy and weak all day, today, since this morning. Denies any further acute symptoms or pertinent events or history. Chief Complaint: Syncope Time Seen by MD: 19:20 Primary Care Provider: DENIES Reviewed Notes: Nurses Notes, Fine Arts Chair Notes, Medications, Allergies Allergies: Coded Allergies: NO KNOWN ALLERGIES (Unverified , 05/17/21) Home Meds Reported Medications Fluoxetine Hcl (Fluoxetine Hcl) 20 Mg Cap, 20 MG PO DAILY for 30 Days, MG 12/19/20 Aripiprazole (Abilify) 2 Mg Tab, 2 MG PO DAILY, TAB 12/19/20 Quetiapine Fumerate (Seroquel Xr) 200 Mg Tab, 200 MG PO HS for 30 Days, MG 07/20/14 Zolpidem Tartrate (Ambien) 10 Mg Tab 12/30/12 Information Source: Patient, Emergency Med Personnel Mode of Arrival: EMS Severity: Moderate Timing: Hours Duration: Minutes Prehospital treatment: 12 Lead EKG, Accucheck, Tomato Grader Past Medical History PAST MEDICAL HISTORY: Anxiety, Depression, HTN, Schizophrenia Surgical History: Hernia Repair Family History Family History: Unobtainable Social History Smoker: Non-Smoker Alcohol: Heavy Drugs: Denies Drug Use Lives In: Home All Other Systems: Reviewed and Negative (As per HPI) Physical Exam General Appearance: Mild Distress, Obese, Other (ill-appearing ) HEENT: Normal ENT Inspection, Pharynx Normal, TMs Normal Neck: Full Range of Motion, Non-Tender, Normal, Normal Inspection Respiratory: Chest Non-Tender, Lungs Clear, No Accessory Muscle Use, No Respiratory Distress, Normal Breath Sounds Cardiovascular: No Edema, No JVD, No Murmur, No Gallop, Normal Peripheral Pulses, Regular Rate/Rhythm Breast Exam: Deferred Gastrointestinal: No Organomegaly, Non Tender, No Pulsatile Mass, Normal Bowel Sounds, Soft Genitalia: Deferred Pelvic: Deferred Rectal: Deferred Extremities: No calf tenderness, Normal capillary refill, Normal inspection, Normal range of motion, Non-tender, No pedal edema Musculoskeletal : Apperance: Normal Neurologic: Alert, school psychology professor II-XII nml as Tested, No Motor Deficits, Normal Affect, Normal Mood, No Sensory Deficits Cerebellar Function: Normal Reflexes: Normal Skin: Dry, Normal Color, Warm Lymphatic: No Adenopathy Was a procedure done? Was a procedure done?: No EKG EKG : Pulse Rate (adult): 88 [place]: Normal Cardiac Rhythm: NSR Block: RBBB Hypertrophy: None ST: Normal Differential Dx Considerations may include: vasovagal response, URI, URI, electrolyte imbalance, dehydration, hypotension, closed head injury, among others X-Ray, Labs, Meds, VS Vital Signs Date Time Temp Pulse Resp B/P (MAP) Pulse Ox O2 Delivery O2 Flow Rate FiO2 10/12/25 19:35 88 10/12/25 19:20 88 10/12/25 19:17 97.7 100 16 96/49 98 97.7 Lab Test 10/12/25 21:39 10/12/25 20:03 Range/Units Urine Color Light-yellow Yellow Urine Clarity Clear Clear Urine pH 6.5 5.0-9.0 Urine Specific [place] 1.020 1.001-1.035 Urine Protein Negative Negative Urine Ketones Negative Negative Urine Blood Negative Negative /uL Urine Nitrite Negative Negative Urine Bilirubin Negative Negative Urine Urobilinogen Normal Negative mg/dL Urine Leukocyte Esterase Negative Negative /uL Urine RBC <1 0 - 3 /hpf Urine Microscopic WBC 1 0-3 /HPF Urine Squamous Epithelial Cells Few <5 /hpf Urine Bacteria Few H None Seen /hpf Urine Glucose Normal Normal mg/dL White Blood Count 12.5 H 4.4-10.8 10^3/uL Red Blood Count 3.30 L 4.5-5.90 10^6/uL Hemoglobin 8.5 L 13.5-17.5 g/dL Hematocrit 26.9 L 41.0-53.0 % Mean Corpuscular Volume 81.5 80.0-100.0 fL Mean Corpuscular Hemoglobin 25.7 L 28.0-32.0 pg Mean Corpuscular Hemoglobin Concent 31.6 L 32.0-36.0 g/dL Red Cell Distribution Width 18.1 H 11.8-14.3 % Platelet Count 275 140-450 10^3/uL Mean Platelet Volume 8.2 6.9-10.8 fL Neutrophils (%) (Auto) 76.5 37.0-80.0 % Lymphocytes (%) (Auto) 18.0 10.0-50.0 % Monocytes (%) (Auto) 4.9 0.0-12.0 % Eosinophils (%) (Auto) 0.3 0.0-7.0 % Basophils (%) (Auto) 0.3 0.0-2.0 % Neutrophils # (Auto) 9.6 H 1.6-8.6 10 ^3/uL Lymphocytes # (Auto) 2.3 0.4-5.4 10 ^3/uL Monocytes # (Auto) 0.6 0-1.3 10 ^3/uL Eosinophils # (Auto) 0 0-0.8 10 ^3/uL Basophils # (Auto) 0 0-0.2 10 ^3/uL Nucleated Red Blood Cells 0.1 % Sodium Level 142 136-145 mmol/L Potassium Level 3.6 3.5-5.1 mmol/L Chloride Level 109 H 98-107 mmol/L Carbon Dioxide Level 17 L 20-31 mmol/L Anion Gap 16 H 5-15 Blood Urea Nitrogen 56 H 9-23 mg/dL Creatinine 1.96 H 0.700-1.30 mg/dL Glomerular Filtration Rate Calc 38 >90 mL/min BUN/Creatinine Ratio 28.6 H 10.0-20.0 Serum Glucose 129 H 74-106 mg/dL Lactic Acid Level 5.2 *H 0.4-2.0 mmol/L Calcium Level 8.2 L 8.7-10.4 mg/dL Magnesium Level 2.3 1.6-2.6 mg/dL Total Bilirubin 0.3 0.2-1.0 mg/dL Aspartate Amino Transferase (AST) 29 13-40 U/L Alanine Aminotransferase (ALT) 35 7-40 U/L Alkaline Phosphatase 85 46-116 U/L Troponin I High Sensitivity 36 </=54 ng/L Total Protein 5.6 L 5.7-8.2 g/dL Albumin 3.5 3.2-4.8 g/dL Current Medications Medications (Trade) Dose Ordered Sig/New Route Start Time Stop Time Status Last Admin Sodium Chloride 1,000 ml @ 1,000 mls/hr Q1H ONCE IVB 10/12/25 19:45 10/12/25 20:44 DC 10/12/25 20:51 Sodium Chloride 1,850 ml @ 1,850 mls/hr ONCE ONCE IV 10/12/25 20:15 10/12/25 21:14 DC 10/12/25 20:51 Piperacillin Sod/ Tazobactam Sod 100 ml @ 100 mls/hr ONCE ONCE IV 10/12/25 20:15 10/12/25 21:14 DC 10/12/25 20:50 Time of 1ST Reevaluation: 19:50 Reevaluation 1ST: Unchanged Patient Education/Counseling: Diagnosis, Treatment Family Education/Counseling: No Family Present SEPSIS Sepsis Screen Physician Orders Electrocardigram (10/12/25 19:26) Troponin-I Hs (10/13/25 00:00) Troponin-I Hs (10/13/25 03:00) Troponin-I Hs (10/13/25 06:00) Blood Culture (10/12/25 19:35) Chest Portable (10/12/25 19:35) Tomato Grader (10/12/25 ) Vital Signs Date Time Temp Pulse Resp B/P (MAP) Pulse Ox O2 Delivery O2 Flow Rate FiO2 10/12/25 19:35 88 10/12/25 19:20 88 10/12/25 19:17 97.7 100 16 96/49 98 97.7 Laboratory Tests Test 10/12/25 20:03 Lactic Acid Level 5.2 mmol/L (0.4-2.0) *H White Blood Count 12.5 10^3/uL (4.4-10.8) H Medications Medications Dose Ordered Sig/New Route Start Time Stop Time Status Last Admin Dose Admin Piperacillin Sod/ Tazobactam Sod 100 ml @ 100 mls/hr ONCE ONCE IV 10/12/25 20:15 10/12/25 21:14 DC 10/12/25 20:50 Sodium Chloride 1,000 ml @ 1,000 mls/hr Q1H ONCE IVB 10/12/25 19:45 10/12/25 20:44 DC 10/12/25 20:51 Sodium Chloride 1,850 ml @ 1,850 mls/hr ONCE ONCE IV 10/12/25 20:15 10/12/25 21:14 DC 10/12/25 20:51 Departure 1 Departure Time of Disposition: 22:41 Impression: Primary Impression: Syncope Additional Impressions: Hypotension Dehydration Disposition: 09 ADMITTED INPATIENT Admit to: Tele Condition: Guarded Comments 64-year-old male with a history of schizophrenia now with syncopal episode and hypotension. His lactic acid is quite elevated at 5.2. He was given IV fluids in his blood pressure improved. He was given IV antibiotics. Patient will need to be admitted for supportive care and further workup Critical Care Note Critical Care Time?: No Critical care comment: Total critical care time: Approximately 36 minutes Due to a high probability of clinically significant, life threatening deterioration, the patient required my highest level of preparedness to intervene emergently and I personally spent this critical care time directly and personally managing the patient. This critical care time included obtaining a history; examining the patient; pulse oximetry; ordering and review of studies; arranging urgent treatment with development of a management plan; evaluation of patient's response to treatment; frequent reassessment; and, discussions with other providers. This critical care time was performed to assess and manage the high probability of imminent, life-threatening deterioration that could result in multi-organ failure. It was exclusive of separately billable procedures and treating other patients. Stability Stability form required: No Heart Score Heart Score: Heart Score Response (Comments) Value History N/A 0 EKG N/A 0 Age N/A 0 Risk Factors N/A 0 Troponin N/A 0 Total 0 I personally scribed for ESDRAS EMERY MD ([email or web address]) on 10/12/25 at 19:35. Electronically submitted by Marcos Ambrosio ([email or web address]). ESDRAS EMERY MD Oct 12, 2025 19:35
[2025-10-12 20:19] LABS: Hematocrit 26.9 % (41.0-53.0); Hemoglobin 8.5 g/dL (13.5-17.5); Mean Corpuscular Hemoglobin 25.7 pg (28.0-32.0); Mean Corpuscular Volume 81.5 fL (80.0-100.0); Nucleated Red Blood Cells % 0.1 %
[2025-10-12 20:30] VITALS: RESP 16; O2SAT 97
[2025-10-12 20:50] LABS: Alanine Aminotransferase 35 U/L (7-40); Albumin 3.5 g/dL (3.2-4.8); Alkaline Phosphatase 85 U/L (46-116); Anion Gap 16 (5-15); BUN/Creatinine Ratio 28.6 (10.0-20.0); Bilirubin, Total 0.3 mg/dL (0.2-1.0); Magnesium 2.3 mg/dL (1.6-2.6); Potassium 3.6 mmol/L (3.5-5.1); Sodium 142 mmol/L (136-145)
[2025-10-12] MEDS: PIPERACILLIN-TAZOB 3.375GM 100 ML IV ONE (20:50)
--- NOTE | 2025-10-12 20:50 | DVH ---
CHEST RADIOGRAPH INDICATION: SOB TECHNIQUE: Single frontal view of the chest was obtained COMPARISON: CHEST PORTABLE on DOS: 05/20/21, CHEST PORTABLE on DOS: 05/18/21, CHEST PORTABLE on DOS: 05/17/21 FINDINGS: Lines and Tubes: None Lungs: No focal consolidation. Pleura: No effusion. No pneumothorax. Cardiomediastinal contours: Unremarkable Bones: No acute osseous abnormality. IMPRESSION: 1. No acute cardiopulmonary disease. 2. No significant change from 05/20/2021
[2025-10-12 20:51] LABS: Blood Urea Nitrogen 56 mg/dL (9-23); Calcium 8.2 mg/dL (8.7-10.4); Carbon Dioxide 17 mmol/L (20-31); Chloride 109 mmol/L (98-107); Glucose 129 mg/dL (74-106); Total Protein 5.6 g/dL (5.7-8.2)
[2025-10-12] MEDS: SODIUM CHLORIDE 0.9% 1,850 ML IV ONE (20:51)
[2025-10-12] MEDS: SODIUM CHLORIDE 0.9% 1,000 ML IVB ONE (20:51)
[2025-10-12 20:57] LABS: Lactic Acid w/Reflex 5.2 mmol/L (0.4-2.0)
[2025-10-12 22:31] LABS: Urine Protein, UAD Negative (Negative)
--- NOTE | 2025-10-13 01:30 | DVHHPRES ---
History of Present Illness Resident Creating Document: JACOB SCHULER RESIDENT History of Present Illness Patient is a 64-year-old male with past medical history of Anxiety, Depression, HTN, Schizophrenia, chronic back pain, hypertension who came to the hospital with chief complains of dizziness and abdominal pain since yesterday. Pain is localized at epigastric area, radiating to lower abdominal pain, constant, 8/10 in intensity, with no clear exacerbating or relieving factor. Patient also complains of dysuria, and generalized weakness. During hospital course the patient also had 1 black color bowel movement. Patient denies fall, trauma to the head, fever, nausea, vomiting, urinary incontinence. Patient states that he was getting up from sitting position when he felt dizzy and fell with loss of consciousness for few sec. Patient states he could not walk due to the dizziness. surgical history: Denies Family history: Reviewed, noncontributory Personal history: Ex heavy drinker, denies smoking, drug use. Lives with: Family PCP: Dr. Gracia home meds: Lipitor 20 mg, lisinopril, metoprolol, [place] 5 mg TID, gabapentin, fluoxetine, aripiprazole, quetiapine, zolpidem Patient seen and examined at the bedside, patient is still complaining of dizziness and generalized weakness. Review of Systems Review of Systems Constitutional: Denies weight loss, fever and chills. HEENT: Denies changes in vision and hearing. Respiratory: Denies shortness of breath and cough Cardiovascular: Denies chest discomfort or palpitations GI: Mild abdominal pain : Has dysuria and urinary frequency. Musculoskeletal: Denies myalgias and joint pain Skin: Denies rash and pruritus. Neurological: Dizziness present on admission Constitutional: Yes: Weakness; No: Fever, Chills, Sweats, Malaise, Other Eyes: No: Pain, Vision change, Conjunctivae inflammation, Eyelid inflammation, Other, Redness ENT: No: Ear pain, Ear discharge, Nose pain, Nose discharge, Nose congestion, Mouth pain, Mouth swelling, Throat pain, Throat swelling, Other Respiratory: No: Cough, Dry, Shortness of breath, SOB with excertion, Wheezing, Hemoptysis, Pleuritic Pain, Sputum, Wheezing, Other Cardiovascular: No: Chest Pain, Palpitations, Orthopnea, Paroxysmal Noc. Dyspnea, Edema, Lt Headedness, Other Gastrointestinal: Abdominal Pain; No: Nausea, Vomiting, Diarrhea, Constipation, Melena, Hematochezia, Other Genitourinary: Dysuria, Frequency Musculoskeletal: No: other, neck pain, shoulder pain, arm pain, back pain, hand pain, leg pain, foot pain Skin: No: Rash, Lesions, Jaundice, Bruising, Other Neurological: No: Weakness, Numbness, Incoordination, Change in speech, Confusion, Seizures, Other Allergies: Coded Allergies: NO KNOWN ALLERGIES (Unverified , 05/17/21) Exam Vital Signs Vital Signs Date Time Temp Pulse Resp B/P (MAP) Pulse Ox O2 Delivery O2 Flow Rate FiO2 10/12/25 19:35 88 10/12/25 19:17 97.7 16 96/49 98 97.7 Exam Patient lying in moderate distress in bed General: Patient alert and oriented in person, place and time. Patient following commands. HEENT: Normocephalic, atraumatic, moist mucous membranes Respiratory/pulmonary: Clear lungs bilaterally, vesicular murmurs present in almost all lung beach, no associated crackles or wheezes. Cardiovascular: Normal heart sounds S1 and S2 with no associated murmurs Abdomen: Abdominal tenderness on palpation in epigastric region, obese Abdomen Extremities: There is no peripheral edema present at the lower extremities. Peripheral Pulses: 3+ Radial (R). 3+ Radial (L). 3+ Dorsalis pedis (R). 3+ Dorsalis pedis(L) Skin: No rashes or pruritus, there is no sacral edema present at this time. Neurological: Intact cranial nerves with no focal neurologic deficits Labs/Xrays Labs Test 10/13/25 00:15 10/12/25 23:51 10/12/25 23:19 10/12/25 22:41 Range/Units Troponin I High Sensitivity 148 *H </=54 ng/L Lactic Acid Level 2.2 *H 0.4-2.0 mmol/L Magnesium Level 2.0 1.6-2.6 mg/dL Test 10/12/25 21:39 10/12/25 20:03 Range/Units Urine Color Light-yellow Yellow Urine Clarity Clear Clear Urine pH 6.5 5.0-9.0 Urine Specific [place] 1.020 1.001-1.035 Urine Protein Negative Negative Urine Ketones Negative Negative Urine Blood Negative Negative /uL Urine Nitrite Negative Negative Urine Bilirubin Negative Negative Urine Urobilinogen Normal Negative mg/dL Urine Leukocyte Esterase Negative Negative /uL Urine RBC <1 0 - 3 /hpf Urine Microscopic WBC 1 0-3 /HPF Urine Squamous Epithelial Cells Few <5 /hpf Urine Bacteria Few H None Seen /hpf Urine Glucose Normal Normal mg/dL White Blood Count 12.5 H 4.4-10.8 10^3/uL Red Blood Count 3.30 L 4.5-5.90 10^6/uL Hemoglobin 8.5 L 13.5-17.5 g/dL Hematocrit 26.9 L 41.0-53.0 % Mean Corpuscular Volume 81.5 80.0-100.0 fL Mean Corpuscular Hemoglobin 25.7 L 28.0-32.0 pg Mean Corpuscular Hemoglobin Concent 31.6 L 32.0-36.0 g/dL Red Cell Distribution Width 18.1 H 11.8-14.3 % Platelet Count 275 140-450 10^3/uL Mean Platelet Volume 8.2 6.9-10.8 fL Neutrophils (%) (Auto) 76.5 37.0-80.0 % Lymphocytes (%) (Auto) 18.0 10.0-50.0 % Monocytes (%) (Auto) 4.9 0.0-12.0 % Eosinophils (%) (Auto) 0.3 0.0-7.0 % Basophils (%) (Auto) 0.3 0.0-2.0 % Neutrophils # (Auto) 9.6 H 1.6-8.6 10 ^3/uL Lymphocytes # (Auto) 2.3 0.4-5.4 10 ^3/uL Monocytes # (Auto) 0.6 0-1.3 10 ^3/uL Eosinophils # (Auto) 0 0-0.8 10 ^3/uL Basophils # (Auto) 0 0-0.2 10 ^3/uL Nucleated Red Blood Cells 0.1 % Sodium Level 142 136-145 mmol/L Potassium Level 3.6 3.5-5.1 mmol/L Chloride Level 109 H 98-107 mmol/L Carbon Dioxide Level 17 L 20-31 mmol/L Anion Gap 16 H 5-15 Blood Urea Nitrogen 56 H 9-23 mg/dL Creatinine 1.96 H 0.700-1.30 mg/dL Glomerular Filtration Rate Calc 38 >90 mL/min BUN/Creatinine Ratio 28.6 H 10.0-20.0 Serum Glucose 129 H 74-106 mg/dL Calcium Level 8.2 L 8.7-10.4 mg/dL Total Bilirubin 0.3 0.2-1.0 mg/dL Aspartate Amino Transferase (AST) 29 13-40 U/L Alanine Aminotransferase (ALT) 35 7-40 U/L Alkaline Phosphatase 85 46-116 U/L B-Type Natriuretic Peptide 54.08 0-100 pg/mL Total Protein 5.6 L 5.7-8.2 g/dL Albumin 3.5 3.2-4.8 g/dL SEPSIS Sepsis Screen Date sepsis recognized/suspect: Oct 12, 2025 Time Sepsis recognized/suspect: 1916 Recent Procedure: No On Antibiotic Therapy: No Respiratory Rate >20: No Heart Rate >90: No Temp<36 C (96.8 F) or >38.3 C: No SBP <90 or MAP <65 mmHG: No New Acute Mental Status Change: No Is the patient on CPAP, BIPAP,: No Physician Orders Electrocardigram (10/12/25 19:26) Troponin-I Hs (10/13/25 03:00) Troponin-I Hs (10/13/25 06:00) Blood Culture (10/12/25 19:35) Chest Portable (10/12/25 19:35) Ciso (10/12/25 ) Admit (10/12/25 23:50) 2 Gm Sodium Diet (10/13/25 Breakfast) Complete Blood Count (10/13/25 04:00) Comprehensive Metabolic Panel (10/13/25 04:00) Condition: Serious (10/12/25 23:50) Bedrest With Bathroom Privileg (10/12/25 23:50) Stat Ekg For Chest Pain (10/12/25 23:50) Notify Of Changes From Base (10/12/25 23:50) Suction Plate Roller Hand For 24 Hours (10/12/25 23:50) Emergency Dysrhythmia Protocol (10/12/25 23:50) Rhythm Strips Once Every Shift (10/12/25 23:50) Orthostatic Vital Signs (10/12/25 23:50) Drug Screen (10/12/25 23:50) Urine Bacterial Culture (10/12/25 23:50) Gastric Occult Blood (10/13/25 00:00) Head Without Contrast (10/13/25 00:22) Echo 2d Mode Cardiac Dop (10/13/25 00:22) Kidney (10/13/25 00:22) Urine Sodium (10/13/25 00:22) Urine Protein/Creatinine Ratio (10/13/25 00:22) Ct Ab Pel Wo Con-No Oral Or Iv (10/13/25 00:56) Lipase (10/13/25 00:56) Vital Signs Date Time Temp Pulse Resp B/P (MAP) Pulse Ox O2 Delivery O2 Flow Rate FiO2 10/12/25 19:35 88 10/12/25 19:20 88 10/12/25 19:17 97.7 100 16 96/49 98 97.7 Laboratory Tests Test 10/12/25 20:03 10/12/25 22:41 Lactic Acid Level 5.2 mmol/L (0.4-2.0) *H 2.2 mmol/L (0.4-2.0) *H White Blood Count 12.5 10^3/uL (4.4-10.8) H Medications Medications Dose Ordered Sig/New Route Start Time Stop Time Status Last Admin Dose Admin Piperacillin Sod/ Tazobactam Sod 100 ml @ 100 mls/hr ONCE ONCE IV 10/12/25 20:15 10/12/25 21:14 DC 10/12/25 20:50 100 MLS/HR Sodium Chloride 1,000 ml @ 1,000 mls/hr Q1H ONCE IVB 10/12/25 19:45 10/12/25 20:44 DC 10/12/25 20:51 1,000 MLS/HR Sodium Chloride 1,850 ml @ 1,850 mls/hr ONCE ONCE IV 10/12/25 20:15 10/12/25 21:14 DC 10/12/25 20:51 1,850 MLS/HR Assessment/Plan Assessment/Plan Sepsis likely due to gastroenteritis Infectious gastroenteritis GI bleeding Syncope possibly due to above Severe anemia, due to above Precipitous hemoglobin dropped Hypotension, due to above Stool occult blood test positive Hemoglobin of with the with the patient 8.5, downtrending Empiric antibiotic Rocephin and Flagyl -head CT : -orthostatic vitals -GI consult -stool occult blood positive -stool WBC -stool ova parasite -C diff -CT abdomen/pelvis -lipase WNL TANVIR due to VMN - FENa IV fluid Renal ultrasound showed no hydronephrosis NSTEMI likely type 2, due to above - tropes elevated Check echocardiogram History of alcohol abuse Obesity, grade 2 BMI 35.2 -patient counseled on diet, exercise, lifestyle modifications for 18 minutes. Diet: NPO PPI prophylaxis: Protonix DVT prophylaxis: Held due to low Hb, SCDs Goals of care addressed with the patient for more than 27 minutes: Full code status Case discussed with Dr. Canales, patient and nurse Plan discussed with: Patient My Orders Orders - JACOB SCHULER RESIDENT Procedure Category Date Status Time Admit ADMIT 10/12/25 Transmitted 23:50 2 Gm Sodium Diet DIET 10/13/25 Transmitted Breakfast Complete Blood Count LAB 10/13/25 Logged 04:00 Comprehensive LAB 10/13/25 Logged Metabolic Panel 04:00 Condition: Serious WILD 10/12/25 In Process 23:50 Bedrest With Bathroom [facility] 10/12/25 In Process Privileg 23:50 Stat Ekg For Chest [facility] 10/12/25 In Process Pain 23:50 Notify Md Of Changes [facility] 10/12/25 In Process From Base 23:50 Suction Plate Roller Hand For [facility] 10/12/25 In Process 24 Hours 23:50 Emergency Dysrhythmia [facility] 10/12/25 In Process Protocol 23:50 Rhythm Strips Once [facility] 10/12/25 In Process Every Shift 23:50 Orthostatic Vital ORDERS 10/12/25 Transmitted Signs 23:50 Drug Screen LAB 10/12/25 In Process 23:50 Urine Bacterial JOE 10/12/25 In Process Culture 23:[address] 10/13/25 Logged 00:22 Echo 2d Mode Cardiac US 10/13/25 Logged DOP 00:22 Kidney US 10/13/25 Taken 00:22 Urine Sodium LAB 10/13/25 In Process 00:22 Urine LAB 10/13/25 In Process Protein/Creatinine 00:22 Ct Ab Pel Wo Con-No CT 10/13/25 Logged Oral Or Iv 00:56 Lipase LAB 10/13/25 Logged 00:56 Visit Coding STANDARD RES Billing Provider: AURORA CANALES MD Date of Service if different f: Oct 12, 2025 Common Visit Codes: 51429-[id number] INP/OBS CARE (HIGH) Secondary Visit Codes: 72846-[id number] CARE PLAN 30 MINUTES JACOB SCHULER RESIDENT Oct 13, 2025 01:30
[2025-10-13 01:39] LABS: Protein, Urine 23.6 mg/dL (1-14)
[2025-10-13 01:41] LABS: Benzodiazephine Screen, Urine Neg (NEGATIVE); Cocaine Screen, Urine Neg (NEGATIVE); Phencyclidine Screen, Urine Neg (NEGATIVE)
[2025-10-13 01:48] LABS: Amphetamine Screen, Urine Neg (NEGATIVE); Barbiturate Scree,Urine Neg (NEGATIVE); Cannabinoid Screen, Urine Neg (NEGATIVE); Opiate Scree,Urine Pos (NEGATIVE)
--- NOTE | 2025-10-13 02:11 | DVH ---
INDICATION: r/o obstuction TECHNIQUE: Multiple real-time sonographic images of the kidneys and bladder were obtained. COMPARISON: None FINDINGS: RIGHT kidney measures 10.5 cm in length with normal parenchymal echotexture and cortical thickness. No evidence of nephrolithiasis or hydronephrosis. LEFT kidney measures 10.9 cm in length with normal parenchymal echotexture and cortical thickness. No evidence of nephrolithiasis or hydronephrosis. Moderately distended urinary bladder. Left ureteral jet identified. Prevoid volume 377.9 mL. No significant postvoid residual. IMPRESSION: 1. No evidence of hydronephrosis. 2. Moderately distended urinary bladder.
[2025-10-13] MEDS: SODIUM CHLORIDE 0.9% 1,000 ML IV ONE ×3 (02:15→16:30)
[2025-10-13 04:10] LABS: Hematocrit 21.8 % (41.0-53.0); Hemoglobin 7.1 g/dL (13.5-17.5); Mean Corpuscular Hemoglobin 26.6 pg (28.0-32.0); Mean Corpuscular Volume 81.5 fL (80.0-100.0); Nucleated Red Blood Cells % 0.0 %
[2025-10-13 04:39] LABS: Alanine Aminotransferase 32 U/L (7-40); Alkaline Phosphatase 78 U/L (46-116); Anion Gap 12 (5-15); BUN/Creatinine Ratio 33.1 (10.0-20.0); Lipase 32 U/L (12-53); Potassium 4.0 mmol/L (3.5-5.1); Sodium 144 mmol/L (136-145)
[2025-10-13 04:47] LABS: Bilirubin, Total 0.2 mg/dL (0.2-1.0); Blood Urea Nitrogen 45 mg/dL (9-23); Calcium 7.7 mg/dL (8.7-10.4); Carbon Dioxide 17 mmol/L (20-31); Chloride 115 mmol/L (98-107); Glucose 110 mg/dL (74-106)
[2025-10-13 04:48] LABS: Albumin 3.2 g/dL (3.2-4.8); Total Protein 5.5 g/dL (5.7-8.2)
--- NOTE | 2025-10-13 05:30 | DVH ---
EXAM: CT HEAD WITHOUT CONTRAST INDICATION: syncope TECHNIQUE: CT of the head without intravenous contrast. Radiation Dose : 1. Head: CT Dose: CTDI volume is 58.24 mGy. Dose-length product is 1.71 mGy*cm The dose indicators for CT are the volume Computed Tomography (CT) Dose Index (CTDIvol) and the Dose Length Product (DLP), and are measured in units of mGy and mGy-cm, respectively. These indicators are not patient dose, but values generated from the CT scanner acquisition factors. The report includes radiation exposure data for exposures received during this examination. COMPARISON: HEAD WITHOUT CONTRAST on DOS: 05/17/21 FINDINGS: There is no evidence of acute intracranial hemorrhage, extra-axial collection, mass effect, midline shift, herniation or hydrocephalus. The ventricles, sulci and cisterns are age appropriate. The medina-white differentiation is intact. The visualized paranasal sinuses and mastoid air cells are clear. The surrounding soft tissues and osseous structures are unremarkable. IMPRESSION: No acute intracranial abnormality. Radiation optimization: All CT scans at this facility use at least one of these dose optimization techniques: automated exposure control mA and/or kV adjustment per patient size (includes targeted exams where dose is matched to clinical indication) or iterative reconstruction.
--- NOTE | 2025-10-13 05:41 | DVH ---
Exam: CT CT AB PEL WO CON-NO ORAL OR IV History: abd pain Comparison Study: None Technique: Multidetector spiral CT of the abdomen was performed from lung bases to pubic symphysis. Imaging was performed without IV contrast. Axial, coronal and sagittal multiplanar reformats were obtained from the axial data set by the technologist. Radiation Dose : 1. Abdomen/Pelvis: CTDIvol 22.1 mGy, DLP 1297 mGy*cm. Findings: Evaluation of solid organs is limited due to lack of intravenous contrast use and patient motion artifact. Lung Bases: Dependent atelectasis. Cardiomegaly. No pleural or pericardial effusion. Liver: The liver is normal in size. No focal lesions. Gallbladder and Biliary Tree: Gallbladder is mostly decompressed but appears grossly within normal limits. Spleen: Unremarkable Pancreas: Fatty atrophic changes to the pancreas. Adrenal Glands: Unremarkable Kidneys: Kidneys are grossly normal without calculi or hydronephrosis. Bladder: Grossly unremarkable for degree of distention. Bowel: Small hiatal hernia. Distended stomach. Small bowel and colon are normal in caliber and distribution. The appendix is unremarkable. Ascites: Absent Lymphadenopathy: No mesenteric, retroperitoneal or periportal lymphadenopathy. Abdominal Wall and Mesentery: Unremarkable. Vasculature: Vascular calcifications of the aorta. Evaluation of abdominal and pelvic vessels is limited due to lack of intravenous contrast. Pelvic Organs: Unremarkable Musculoskeletal: Multilevel degenerative changes of the spine. This is most prominent at L3-L4, L4-L5 and L5-S1. No aggressive focal bony lesions, acute fractures or dislocation. IMPRESSION: No acute abdominal or pelvic findings. Radiation optimization: All CT scans at this facility use at least one of these dose optimization techniques: automated exposure control mA and/or kV adjustment per patient size (includes targeted exams where dose is matched to clinical indication) or iterative reconstruction.
[2025-10-13] MEDS ORDERED: PANTOPRAZOLE 40 MG TAB PO SCH ×2 (06:00→10:00)
--- NOTE | 2025-10-13 07:10 | ECG ---
[facility] Test Date: 2025-10-12 Test Time: 19:20:37 Pat Name: PORSHA HARRISON Department: ED Room: 0236T Gender: M Certified Rehabilitation Counselor: SYDNIE : 1960 Requested By: EMERGENCY EMERGENCY Order Number: [id number] Reading MD: Chavez Magana Measurements Intervals [place] Rate: 88 P: 11 CO: 156 QRS: 26 QRSD: 131 T: 71 QT: 396 QTc: 480 Interpretive Statements Sinus rhythm Right bundle branch block Electronically Signed On 10-16-2025 17:16:30 PST by Chavez Magana Please click the below link to view image of tracing.
[2025-10-13 07:24] VITALS: PULSE 101; RESP 16; O2SAT 98
[2025-10-13 08:25] LABS: Hematocrit 21.5 % (41.0-53.0)
[2025-10-13 08:26] LABS: Hemoglobin 7.0 g/dL (13.5-17.5)
--- NOTE | 2025-10-13 08:47 | DVHPNRES ---
Progress Note Date Seen: Oct 13, 2025 Resident Creating Document: JUAN MARIA RESIDENT Has the PT tested + for MRSA If YES, has PT been informed?: No Medical Necessity Reason Pt with a Central, PICC or Fol: No Subjective Review of Systems Casper Tomlinson tyler 64-year-old male with past medical history of Anxiety, Depression, HTN, Schizophrenia, chronic back pain, hypertension. The patient came to the [facility] with chief complains of 1 day of dizziness and abdominal pain 8/10, localized in the epigastrium, cramp like, with no irradiation, with no exacerbating or relieving factor. The patient also complaint of 1 month of generalized weakness and dark stools. During hospital course the patient also had 1 black color bowel movement. On further questioning, the patient reports he has been taking motrin regularly due to chronic back pain. Due to dizziness and weakness the patient reports a near syncope. The patient denies fever, chill, diarrhea, vomit, hematochezia or other symptoms. He was admitted for further assessment and management. Past medical Hx: surgical history: Denies Family history: Reviewed, noncontributory Personal history: Ex heavy drinker, denies smoking, drug use. Lives with: Family PCP: Dr. Gracia home meds: Lipitor 20 mg, lisinopril, metoprolol, [place] 5 mg TID, gabapentin, fluoxetine, aripiprazole, quetiapine, zolpidem On 10/13/25, the patient was seen and examined at the bedside, patient is still complaining of dizziness and generalized weakness. The hemoglobin dropped to 7.0, 1 unit of RBC were transfused today. Due to Troponin elevation a cardiac consult was placed, they report elevation of troponins due to NSTEMI type 2 and recommend continue with current management. Due to melena and positive stool occult blood, GI consult was placed. Carafate was initiated. Repeat H&H has been ordered. We will continue following this patient closely. ROS: Constitutional: Complains of generalize weakness and dizziness. HEENT: Denies changes in vision and hearing. Respiratory: denies of cough, nasal congestion Cardiovascular: Denies chest discomfort or palpitations GI: epigastric abdominal pain improved, nausea, vomiting and diarrhea. : Denies dysuria and urinary frequency. Musculoskeletal: Chronically increased muscle tone in bilateral lower limb, incoordination Skin: Denies rash and pruritus. Neurological: complains of dizziness, Denies headache, vision or hearing problems Objective vital signs Vital Sign Date Time Temp Pulse Resp B/P (MAP) Pulse Ox O2 Delivery O2 Flow Rate FiO2 10/13/25 08:21 107 10/13/25 07:24 16 98 Room Air* 0 21 10/13/25 07:24 99.8 120/65 (83) 99.8 Total Intake and Output 10/12/25 10/12/25 10/13/25 15:00 23:00 07:00 Intake Total 2950 ml 1250 ml Balance 2950 ml 1250 ml medications Current Medications Medications Dose Ordered Sig/New Route Start Time Stop Time Status Last Admin Dose Admin Metronidazole 100 ml @ 100 mls/hr Q8HR IV 10/13/25 02:10 10/13/25 02:10 100 MLS/HR Ceftriaxone Sodium 50 ml @ 100 mls/hr DAILY@09 IV 10/14/25 09:00 Pantoprazole Sodium 40 mg BID PO 10/13/25 10:00 Examination General: Pale, Not in acute distress, alert, oriented x3. Patient following commands. HEENT: Normocephalic, atraumatic, moist mucous membranes Respiratory/pulmonary: Clear lungs bilaterally, vesicular murmurs present in almost all lung beach, no associated crackles or wheezes. Cardiovascular: Normal heart sounds S1 and S2 with no associated murmurs Abdomen: Abdomen nondistended, there is no pain to palpation in any of the abdominal quadrants, no palpable masses. Extremities: There is no peripheral edema present at the lower extremities. Sensation preserved, but no movement. Peripheral Pulses: 3+ Radial (R). 3+ Radial (L). 3+ Dorsalis pedis (R). 3+ Dorsalis pedis(L) Skin: No rashes or pruritus laboratory and microbiology Laboratory Tests 10/13/25 06:10 10/13/25 03:11 Test 10/13/25 03:11 Range/Units Serum Glucose 110 H 74-106 mg/dL Labs and/or images reviewed: Labs reviewed by me, Image(s) reviewed by me Problem List/Assessment/Plan Problem List/Assessment/Plan #Sepsis likely due to possible acute gastroenteritis -IV Rocephin -IV Flagyl IV fluids -stool WBC: Few -stool ova parasite: pending #Acute Upper GI bleeding #Acute Severe anemia, due to GI blood loss -Stool occult blood test positive -Hemoglobin of with the with the patient 7.0, downtrending -Type and Screen -1 unit RBC -Monitor H&H -GI consult: recommend EGD #TANVIR due to VMN #CKD Stage IV - FENa 0.3 -IV fluid -Renal ultrasound showed no hydronephrosis -Nephology consult #Acute NSTEMI likely type 2 possible due to severe anemia -Elevated troponins: 464, 824, -Troponins new level. -Echocardiogram: EF50% -Cardiology consult #History of alcohol abuse Counseling about alcohol cessation. #Obesity, grade 2 BMI 35.2 -patient counseled on diet, exercise, lifestyle modifications for 18 minutes. Diet: NPO PPI prophylaxis: Protonix DVT prophylaxis: Held due to low Hb, SCDs Goals of care addressed with the patient for more than 30 minutes: Code status:Full code PCP: Dr. Martinez Case discussed with , patient and nurse Plan discussed with: Patient My Orders My Orders Orders - JUAN MARIA RESIDENT Procedure Category Date Status Time PTPTT LAB 10/13/25 Logged 08:40 Iron Panel LAB 10/13/25 Logged 08:40 Ferritin LAB 10/13/25 Logged 08:40 * Cardiology Consult CONS 10/13/25 Transmitted 08:40 Visit Coding STANDARD RES Billing Provider: FILIPE BELL MD Date of Service if different f: Oct 13, 2025 Common Visit Codes: [id number] INP/OBS CARE(MOD) JUAN MARIA RESIDENT Oct 13, 2025 08:47
[2025-10-13 09:28] LABS: INR 1.05 (0.9-1.15); Partial Thromboplastin Time 23.3 SEC (24.5-34.5); Prothrombin Time 11.1 sec (9.3-11.8)
[2025-10-13 09:52] LABS: INR 1.06 (0.9-1.15); Prothrombin Time 11.2 sec (9.3-11.8)
[2025-10-13] MEDS: PANTOPRAZOLE 40 MG/10 ML VIAL INJ IV SCH (09:58)
[2025-10-13 11:18] VITALS: BP 121/72; PULSE 108; RESP 18; TEMP 98.9
[2025-10-13] MEDS ORDERED: ATORVASTATIN 20 MG TAB PO ONE (11:30)
[2025-10-13 11:41] VITALS: BP 125/62; PULSE 102; RESP 18; TEMP 99.1
--- NOTE | 2025-10-13 12:03 | DVHINCON2 ---
JHAJJMADELINE RESIDENT 10/13/25 1203: Date Seen: Oct 13, [address] Brandon Reason for Consultation Elevated troponins History of Present Illness Patient is a 64-year-old male came to the hospital with a chief complaint of dizziness and abdominal pain. Patient did report of dark black stools, initial lab investigation showed severe anemia and patient reportedly was taking ibuprofen 800 mg 3 times a day for the last few months for intractable back pain. Cardiology were consulted because of elevated troponins which trended 148-> 466-> 824. Patient denied any chest pain. Initial ECG showed sinus rhythm with a right bundle-branch block with the T-wave inversions in V1 and V2. Past Medical History Schizophrenia, chronic back pain, hypertension Past Surgical History Denies Family History: FH: cancer Family History Father of [place] in his 50s Social History Denies smoking, alcohol, drug use Allergies: Coded Allergies: NO KNOWN ALLERGIES (Unverified , 05/17/21) Home Meds Reported Medications Fluoxetine Hcl (Fluoxetine Hcl) 20 Mg Cap, 20 MG PO DAILY for 30 Days, MG 12/19/20 Aripiprazole (Abilify) 2 Mg Tab, 2 MG PO DAILY, TAB 12/19/20 Quetiapine Fumerate (Seroquel Xr) 200 Mg Tab, 200 MG PO HS for 30 Days, MG 07/20/14 Zolpidem Tartrate (Ambien) 10 Mg Tab 12/30/12 Current Medications Current Medications Medications (Trade) Dose Ordered Sig/New Route PRN Reason Start Time Stop Time Status Last Admin Pantoprazole Sodium (Protonix Tablet) 40 mg DAILY@0600 PO 10/13/25 06:00 10/13/25 04:58 DC Metronidazole 100 ml @ 100 mls/hr Q8HR IV 10/13/25 02:10 10/13/25 02:10 Ceftriaxone Sodium 50 ml @ 100 mls/hr DAILY@09 IV 10/14/25 09:00 Pantoprazole Sodium (Protonix Tablet) 40 mg BID PO 10/13/25 10:00 10/13/25 09:40 DC Pantoprazole Sodium (Protonix) 40 mg BID IV 10/13/25 10:00 10/13/25 09:58 Atorvastatin Calcium (Lipitor) 80 mg HS PO 10/13/25 22:00 Review of Systems Patient lying comfortably in bed Alert and oriented x4, no acute complaints Denies chest pain, shortness of breath, nausea, vomiting Vital Signs Vital Signs Date Time Temp Pulse Resp B/P (MAP) Pulse Ox O2 Delivery O2 Flow Rate FiO2 10/13/25 11:41 99.1 102 18 125/62 99.1 10/13/25 11:29 98 10/13/25 07:24 Room Air* 0 21 Physical Exam Skin - Patients skin is warm and dry. HEENT - normocephalic, atraumatic, dry mucous membranes, no scleral icterus, no conjunctival pallor Neck - full ROM, no LAD, no JVD Pulmonary - B/L clear breath sounds without any wheezing or rales cardiovascular - regular S1,S2 heard, no murmurs or additional sounds appreciated. peripheral pulses normal radial 2+, pedal 2+. GI - mild tenderness to palpation in the epigastric region. no hepatospleenomegaly. Bowel sounds normoactive Neurological - Patient is A/O X 3 . Bilateral upper extremity strength 5/5, bilateral lower extremity strength 5/5, no facial droop, normal speech, no tremor, no sensory deficiets. Labs/Diagnostic Data Labs Test 10/13/25 09:11 10/13/25 08:26 10/13/25 06:10 10/13/25 03:11 Range/Units Prothrombin Time 11.2 9.3-11.8 sec Prothrombin Time INR 1.06 0.9-1.15 Magnesium Level 2.0 1.6-2.6 mg/dL Ferritin 15.0 L 22-322 ng/mL C-Reactive Protein High Sensitivity 0.92 <1.0 mg/dL Thyroid Stimulating Hormone (TSH) 2.55 0.55-4.78 uIU/mL Hemoglobin 7.0 *L 13.5-17.5 g/dL Hematocrit 21.5 L 41.0-53.0 % Erythrocyte Sedimentation Rate 13 0-20 mm/hr Activated Partial Thromboplast Time 23.3 L 24.5-34.5 SEC Hemoglobin A1c 6.1 H <5.7 % A1C Lactic Acid Level 1.5 0.4-2.0 mmol/L Troponin I High Sensitivity 824 *H </=54 ng/L White Blood Count 13.0 H 4.4-10.8 10^3/uL Red Blood Count 2.68 L 4.5-5.90 10^6/uL Mean Corpuscular Volume 81.5 80.0-100.0 fL Mean Corpuscular Hemoglobin 26.6 L 28.0-32.0 pg Mean Corpuscular Hemoglobin Concent 32.6 32.0-36.0 g/dL Red Cell Distribution Width 18.5 H 11.8-14.3 % Platelet Count 197 140-450 10^3/uL Mean Platelet Volume 8.3 6.9-10.8 fL Neutrophils (%) (Auto) 81.5 H 37.0-80.0 % Lymphocytes (%) (Auto) 13.5 10.0-50.0 % Monocytes (%) (Auto) 4.9 0.0-12.0 % Eosinophils (%) (Auto) 0.0 0.0-7.0 % Basophils (%) (Auto) 0.1 0.0-2.0 % Neutrophils # (Auto) 10.6 H 1.6-8.6 10 ^3/uL Lymphocytes # (Auto) 1.7 0.4-5.4 10 ^3/uL Monocytes # (Auto) 0.6 0-1.3 10 ^3/uL Eosinophils # (Auto) 0 0-0.8 10 ^3/uL Basophils # (Auto) 0 0-0.2 10 ^3/uL Nucleated Red Blood Cells 0.0 % Sodium Level 144 136-145 mmol/L Potassium Level 4.0 3.5-5.1 mmol/L Chloride Level 115 H 98-107 mmol/L Carbon Dioxide Level 17 L 20-31 mmol/L Anion Gap 12 5-15 Blood Urea Nitrogen 45 #H 9-23 mg/dL Creatinine 1.36 H 0.700-1.30 mg/dL Glomerular Filtration Rate Calc 59 >90 mL/min BUN/Creatinine Ratio 33.1 H 10.0-20.0 Serum Glucose 110 H 74-106 mg/dL Calcium Level 7.7 L 8.7-10.4 mg/dL Total Bilirubin 0.2 0.2-1.0 mg/dL Aspartate Amino Transferase (AST) 39 13-40 U/L Alanine Aminotransferase (ALT) 32 7-40 U/L Alkaline Phosphatase 78 46-116 U/L Total Protein 5.5 L 5.7-8.2 g/dL Albumin 3.2 3.2-4.8 g/dL Lipase 32 12-53 U/L Test 10/12/25 23:51 10/12/25 23:19 10/12/25 21:39 10/12/25 20:03 Range/Units Stool Occult Blood Positive Negative Stool Occult Blood Sample #3 Negative Stool for White Cells Few Urine Creatinine 113.51 30.0-125.0 mg/dL Urine Protein/Creatinine Ratio 0.21 Urine Sodium 39 L 40-220 mmol/L Urine Total Protein 23.6 H 1-14 mg/dL Urine Color Light-yellow Yellow Urine Clarity Clear Clear Urine pH 6.5 5.0-9.0 Urine Specific [place] 1.020 1.001-1.035 Urine Protein Negative Negative Urine Ketones Negative Negative Urine Blood Negative Negative /uL Urine Nitrite Negative Negative Urine Bilirubin Negative Negative Urine Urobilinogen Normal Negative mg/dL Urine Leukocyte Esterase Negative Negative /uL Urine RBC <1 0 - 3 /hpf Urine Microscopic WBC 1 0-3 /HPF Urine Squamous Epithelial Cells Few <5 /hpf Urine Bacteria Few H None Seen /hpf Urine Glucose Normal Normal mg/dL Urine Opiates Screen Pos NEGATIVE Urine Fentanyl Screen Neg NEGATIVE Urine Barbiturates Screen Neg NEGATIVE Urine Phencyclidine Screen Neg NEGATIVE Urine Amphetamines Screen Neg NEGATIVE Urine Benzodiazepines Screen Neg NEGATIVE Urine Cocaine Screen Neg NEGATIVE Urine Cannabinoids Screen Neg NEGATIVE B-Type Natriuretic Peptide 54.08 0-100 pg/mL Assessment NSTEMI likely type 2 from demand ischemia Acute GI bleeding likely due to peptic ulcer disease Peptic ulcer disease likely due to prolonged NSAIDs use h/o CAD with 70% stenosis in proximal ostial RCA ( angiogram 2020 ) High anion gap metabolic acidosis TANVIR on CKD likely prerenal Plan/Recommendation - given the patient's acute bleeding, no antiplatelet therapy, no immediate coronary intervention - monitor H&H and keep hemoglobin above 7 - patient cleared for GI procedure - avoid NSAIDs - patient would benefit from outpatient stress test Goals of care discussed with the patient Plan discussed with Dr. Daley Plan discussed with: Patient NYHA Physical activity limitations: NA Date of Service: Oct 13, 2025 Billing Provider: HELEN DALEY MD Cardiology Common Codes: [id number] INP/OBS CARE (High) HELEN DALEY MD 10/13/25 1542: Family History: FH: cancer Allergies: Coded Allergies: NO KNOWN ALLERGIES (Unverified , 05/17/21) Home Meds Reported Medications Fluoxetine Hcl (Fluoxetine Hcl) 20 Mg Cap, 20 MG PO DAILY for 30 Days, MG 12/19/20 Aripiprazole (Abilify) 2 Mg Tab, 2 MG PO DAILY, TAB 12/19/20 Quetiapine Fumerate (Seroquel Xr) 200 Mg Tab, 200 MG PO HS for 30 Days, MG 07/20/14 Zolpidem Tartrate (Ambien) 10 Mg Tab 12/30/12 Plan/Recommendation agree with cv team reviewed [facility] images personally moderate cad noted ok to proceed to EGD/GI workup felicity bicarb is low, IVF and blood product avoid asa/ outpt cv workup in future avoid nsaids Plan discussed with: Patient MADELINE GILMAN RESIDENT Oct 13, 2025 12:03 HELEN DALEY MD Oct 13, 2025 15:42
[2025-10-13 13:26] LABS: Iron 61.0 ug/dL (65-175)
[2025-10-13 13:29] LABS: Total Iron Binding Capacity 262.0 ug/dL (250-425)
--- NOTE | 2025-10-13 14:38 | DVHINCON2 ---
GI Consult Consult Note GI consult note Date of Consultation: 10/13/2025 Chief Complaint: GI bleed Referring Physician: Dr. Ramirez H&P: 64-year-old male with past medical history of anxiety, depression, hypertension, schizophrenia, chronic back pain, hypertension admitted with complains of dizziness and abdominal pain. Patient complains of epigastric abdominal pain for the past one-week. No nausea or vomiting. Denies hematemesis. Last bowel movement 1 hour ago and which was black in color. Denies red blood in stool. Patient admits to taking Aleve to 75 mg about 3 times a day for the past six months for back pain. Patient is scheduled for back surgery this week per patient No chest pain but has elevated troponins and being seen by Cardiology Past Medical History: As above Past Surgical History: Denies Social History: NO smoking, drinking ETOH and use of illegal drugs. Family History: Noncontributory Review of Systems: Constitutional: no fever, chill, weight loss HEENT: no eye pain, no hearing loss, no oral lesion, no scleral icterus Heart: no chest pain, no chest pressure Lung: no cough, no dyspnea with exertion Abdomen: see HPI Physical exam: General: NAD, AAOX3 Chest: lung beach clear to auscultation Heart: RRR, no murmur Abdomen: non-distended,+ epigastric tenderness to palpation, +BS Labs: Labs Test 10/13/25 09:11 10/13/25 08:26 10/13/25 06:10 10/13/25 03:11 Range/Units Prothrombin Time 11.2 9.3-11.8 sec Prothrombin Time INR 1.06 0.9-1.15 Magnesium Level 2.0 1.6-2.6 mg/dL Iron Level 61 L 65-175 ug/dL Total Iron Binding Capacity 262 250-425 ug/dL Percent Iron Saturation 23.3 20-55 % Ferritin 15.0 L 22-322 ng/mL C-Reactive Protein High Sensitivity 0.92 <1.0 mg/dL Thyroid Stimulating Hormone (TSH) 2.55 0.55-4.78 uIU/mL Hemoglobin 7.0 *L 13.5-17.5 g/dL Hematocrit 21.5 L 41.0-53.0 % Erythrocyte Sedimentation Rate 13 0-20 mm/hr Activated Partial Thromboplast Time 23.3 L 24.5-34.5 SEC Hemoglobin A1c 6.1 H <5.7 % A1C Lactic Acid Level 1.5 0.4-2.0 mmol/L Troponin I High Sensitivity 824 *H </=54 ng/L White Blood Count 13.0 H 4.4-10.8 10^3/uL Red Blood Count 2.68 L 4.5-5.90 10^6/uL Mean Corpuscular Volume 81.5 80.0-100.0 fL Mean Corpuscular Hemoglobin 26.6 L 28.0-32.0 pg Mean Corpuscular Hemoglobin Concent 32.6 32.0-36.0 g/dL Red Cell Distribution Width 18.5 H 11.8-14.3 % Platelet Count 197 140-450 10^3/uL Mean Platelet Volume 8.3 6.9-10.8 fL Neutrophils (%) (Auto) 81.5 H 37.0-80.0 % Lymphocytes (%) (Auto) 13.5 10.0-50.0 % Monocytes (%) (Auto) 4.9 0.0-12.0 % Eosinophils (%) (Auto) 0.0 0.0-7.0 % Basophils (%) (Auto) 0.1 0.0-2.0 % Neutrophils # (Auto) 10.6 H 1.6-8.6 10 ^3/uL Lymphocytes # (Auto) 1.7 0.4-5.4 10 ^3/uL Monocytes # (Auto) 0.6 0-1.3 10 ^3/uL Eosinophils # (Auto) 0 0-0.8 10 ^3/uL Basophils # (Auto) 0 0-0.2 10 ^3/uL Nucleated Red Blood Cells 0.0 % Sodium Level 144 136-145 mmol/L Potassium Level 4.0 3.5-5.1 mmol/L Chloride Level 115 H 98-107 mmol/L Carbon Dioxide Level 17 L 20-31 mmol/L Anion Gap 12 5-15 Blood Urea Nitrogen 45 #H 9-23 mg/dL Creatinine 1.36 H 0.700-1.30 mg/dL Glomerular Filtration Rate Calc 59 >90 mL/min BUN/Creatinine Ratio 33.1 H 10.0-20.0 Serum Glucose 110 H 74-106 mg/dL Calcium Level 7.7 L 8.7-10.4 mg/dL Total Bilirubin 0.2 0.2-1.0 mg/dL Aspartate Amino Transferase (AST) 39 13-40 U/L Alanine Aminotransferase (ALT) 32 7-40 U/L Alkaline Phosphatase 78 46-116 U/L Total Protein 5.5 L 5.7-8.2 g/dL Albumin 3.2 3.2-4.8 g/dL Lipase 32 12-53 U/L Test 10/12/25 23:51 10/12/25 23:19 10/12/25 21:39 10/12/25 20:03 Range/Units Stool Occult Blood Positive Negative Stool Occult Blood Sample #3 Negative Stool for White Cells Few Urine Creatinine 113.51 30.0-125.0 mg/dL Urine Protein/Creatinine Ratio 0.21 Urine Sodium 39 L 40-220 mmol/L Urine Total Protein 23.6 H 1-14 mg/dL Urine Color Light-yellow Yellow Urine Clarity Clear Clear Urine pH 6.5 5.0-9.0 Urine Specific [place] 1.020 1.001-1.035 Urine Protein Negative Negative Urine Ketones Negative Negative Urine Blood Negative Negative /uL Urine Nitrite Negative Negative Urine Bilirubin Negative Negative Urine Urobilinogen Normal Negative mg/dL Urine Leukocyte Esterase Negative Negative /uL Urine RBC <1 0 - 3 /hpf Urine Microscopic WBC 1 0-3 /HPF Urine Squamous Epithelial Cells Few <5 /hpf Urine Bacteria Few H None Seen /hpf Urine Glucose Normal Normal mg/dL Urine Opiates Screen Pos NEGATIVE Urine Fentanyl Screen Neg NEGATIVE Urine Barbiturates Screen Neg NEGATIVE Urine Phencyclidine Screen Neg NEGATIVE Urine Amphetamines Screen Neg NEGATIVE Urine Benzodiazepines Screen Neg NEGATIVE Urine Cocaine Screen Neg NEGATIVE Urine Cannabinoids Screen Neg NEGATIVE B-Type Natriuretic Peptide 54.08 0-100 pg/mL Imaging: CT abdomen pelvis IMPRESSION: No acute abdominal or pelvic findings. Assessment: GI bleed Anemia possibly secondary to GI bleed NSTEMI History of alcohol abuse Sepsis Plan: Discussed with Dr. Becker Protonix and Carafate Monitor labs transfuse if hemoglobin less than seven Cardiology recommendations pending Possible EGD to be considered when patient is cleared by Cardiology DC NSAIDs discussed extensively Plan discussed with patient Thank you for this consult Date of Service: Oct 13, 2025 Billing Provider: GOPI BALLARD Common Visit Codes: CONSULT ONLY Consultation Codes: [id number] CONSULT <60MIN GOPI BALLARD Oct 13, 2025 14:38
--- NOTE | 2025-10-13 14:44 | DVHSR ---
APPROVED REPORT EXAM: Two-dimensional and M-mode echocardiogram with Doppler and color Doppler. Blood Pressure: 120/65 mmHg INDICATION Syncope RISK FACTORS Obesity: Height: 5'5", Weight: 211 DIMENSIONS LVDd (3.8-5.7cm) LA (2D) 3.5 (1.9-4.0cm) Aortic Root (2.0-3.7cm) EF (%) 62.0 (55-70%) Rt. Atrium 3.3 (1.9-4.0cm) Asc. Aorta cm Mitral Valve Mitral Mitral Stenosis E/A ratio 0.0 2D MVA cm2 Aortic Valve Aortic Valve Aortic Stenosis V1 1.39m/s AO Mean GR. 5mmHg V2 1.52m/s AO Peak GR. 9mmHg LVOT Diameter 1.8 (1.8-2.4cm) Doppler YENY 2.33cm2 Other Information Quality : Technically Limited Rhythm : Technically limited study due to body habitus. Conclusion lvef 55% mild apex is hypokinetic mild lvh normal rv function no severe valve abnormality noted limited study
[2025-10-13] MEDS: IRON SUCROSE COMPLEX 110 ML IV SCH (15:40)
[2025-10-13 16:06] LABS: Hematocrit 22.9 % (41.0-53.0); Hemoglobin 7.6 g/dL (13.5-17.5)
[2025-10-13] MEDS ORDERED: ACETAMINOPHEN 500 MG TAB or CAP PO PRN (16:30)
[2025-10-13] MEDS ORDERED: MORPHINE SULFATE INJ 2 MG/ml SYRG IV PRN (16:30)
[2025-10-13] MEDS: CYANOCOBALAMIN (B-12) 1000 MCG/1 ML VIAL IM ONE (17:49)
[2025-10-13] MEDS: HYDROcodone-ACET 5/325MG TAB PO PRN (19:01)
[2025-10-13 20:17] VITALS: PULSE 100; RESP 16; O2SAT 96
[2025-10-13 21:49] VITALS: BP 157/88; PULSE 92; RESP 17; TEMP 98.3; O2SAT 97
[2025-10-13 21:50] VITALS: BP 157/88; PULSE 92; RESP 17; TEMP 98.3; O2SAT 97
[2025-10-13] MEDS: ATORVASTATIN 20 MG TAB PO SCH (22:16)
[2025-10-13] MEDS: SUCRALFATE 1 GM/10 ML ORAL SUSP PO SCH (22:16)
[2025-10-13] MEDS ORDERED: ESZO2TAB24 PO (22:55)
[2025-10-14] VITALS (8 sets, daily range): BP systolic 130–160; BP diastolic 74–92; PULSE 78–93; RESP 16–18; TEMP 97.4–98.9; O2SAT 96–98
[2025-10-14] MEDS: MELATONIN 5 MG TAB PO ONE (00:21)
[2025-10-14 05:05] LABS: Hematocrit 24.7 % (41.0-53.0)
[2025-10-14 05:07] LABS: Hemoglobin 8.2 g/dL (13.5-17.5); Mean Corpuscular Hemoglobin 27.3 pg (28.0-32.0); Mean Corpuscular Volume 81.8 fL (80.0-100.0); Nucleated Red Blood Cells % 0.0 %
[2025-10-14 05:48] LABS: Sodium 145 mmol/L (136-145)
[2025-10-14 05:49] LABS: Anion Gap 13 (5-15); Carbon Dioxide 20 mmol/L (20-31)
[2025-10-14 05:54] LABS: Glucose 100 mg/dL (74-106)
[2025-10-14 05:58] LABS: Calcium 8.4 mg/dL (8.7-10.4); Chloride 112 mmol/L (98-107); Potassium 3.2 mmol/L (3.5-5.1)
[2025-10-14 06:09] LABS: BUN/Creatinine Ratio 21.5 (10.0-20.0); Blood Urea Nitrogen 20 mg/dL (9-23)
[2025-10-14] MEDS: LISINOPRIL 5 MG TAB PO SCH (09:01)
--- NOTE | 2025-10-14 09:42 | DVHPNRES ---
Progress Note Date Seen: Oct 14, 2025 Resident Creating Document: JUAN MARIA RESIDENT Has the PT tested + for MRSA If YES, has PT been informed?: No Medical Necessity Reason Pt with a Central, PICC or Fol: No Subjective Review of Systems Casper Tomlinson tyler 64-year-old male with past medical history of Anxiety, Depression, HTN, Schizophrenia, chronic back pain, hypertension. The patient came to the [facility] with chief complains of 1 day of dizziness and abdominal pain 8/10, localized in the epigastrium, cramp like, with no irradiation, with no exacerbating or relieving factor. The patient also complaint of 1 month of generalized weakness and dark stools. During hospital course the patient also had 1 black color bowel movement. On further questioning, the patient reports he has been taking motrin regularly due to chronic back pain. Due to dizziness and weakness the patient reports a near syncope. The patient denies fever, chill, diarrhea, vomit, hematochezia or other symptoms. He was admitted for further assessment and management. Past medical Hx: surgical history: Denies Family history: Reviewed, noncontributory Personal history: Ex heavy drinker, denies smoking, drug use. Lives with: Family PCP: Dr. Gracia home meds: Lipitor 20 mg, lisinopril, metoprolol, [place] 5 mg TID, gabapentin, fluoxetine, aripiprazole, quetiapine, zolpidem On 10/13/25, the patient was seen and examined at the bedside, patient is still complaining of dizziness and generalized weakness. The hemoglobin dropped to 7.0, 1 unit of RBC were transfused today. Due to Troponin elevation a cardiac consult was placed, they report elevation of troponins due to NSTEMI type 2 and recommend continue with current management. Due to melena and positive stool occult blood, GI consult was placed. Carafate was initiated. Repeat H&H has been ordered. We will continue following this patient closely. On 11/14/24, the patient was examined and evaluated at bedside. Vital signs, labs and chart was reviewed. The patient reports feeling better with improvement on weakness. The patient hemoglobin has improved to 8.2mg/dl. GI is on board, they recommended EGD. Today the patient presented episode of ventricular tachycardia, Cardiology was consult and Metoprolol dose was increased. the patient will have the EGD procedure 10/15/25. GI ordered 1 RBC unit and 1 FFP unit. We will continue following up the progress of this patient closely. ROS: Constitutional: improvement of generalize weakness and dizziness. HEENT: Denies changes in vision and hearing. Respiratory: denies of cough, nasal congestion Cardiovascular: Denies chest discomfort or palpitations GI: epigastric abdominal pain improved 11/08, denies nausea, vomiting and diarrhea. : Denies dysuria and urinary frequency. Musculoskeletal: normal ROM, normal strength. Skin: Denies rash and pruritus. Neurological: improvement of dizziness, Denies headache, vision or hearing problems Objective vital signs Vital Sign Date Time Temp Pulse Resp B/P (MAP) Pulse Ox O2 Delivery O2 Flow Rate FiO2 10/14/25 09:01 146/82 10/14/25 05:00 97.6 80 18 98 97.6 10/13/25 21:50 Room Air* 0 21 Total Intake and Output 10/13/25 10/13/25 10/14/25 15:00 23:00 07:00 Intake Total 900 ml 225 ml Output Total 0 ml Balance 900 ml 225 ml medications Current Medications Medications Dose Ordered Sig/New Route Start Time Stop Time Status Last Admin Dose Admin Metronidazole 100 ml @ 100 mls/hr Q8HR IV 10/13/25 02:10 10/14/25 06:01 100 MLS/HR Ceftriaxone Sodium 50 ml @ 100 mls/hr DAILY@09 IV 10/14/25 09:00 10/14/25 09:00 100 MLS/HR Pantoprazole Sodium 40 mg BID IV 10/13/25 10:00 10/14/25 09:00 40 MG Atorvastatin Calcium 80 mg HS PO 10/13/25 22:00 10/13/25 22:16 80 MG Sucralfate 1 gm TID@0600,1130,2200 PO 10/13/25 22:00 10/14/25 05:55 1 GM Iron Sucrose 110 ml @ 110 mls/hr DAILY@1200 IV 10/13/25 15:30 10/17/25 15:29 10/13/25 15:40 110 MLS/HR Acetaminophen 500 mg Q4HPRN PRN PO 10/13/25 16:30 Acetaminophen/ Hydrocodone Bitart 1 tab Q4HPRN PRN PO 10/13/25 16:30 10/14/25 05:59 1 TAB Morphine Sulfate 1 mg Q4HPRN PRN IV 10/13/25 16:30 Lisinopril 10 mg DAILY PO 10/14/25 10:00 10/14/25 09:01 10 MG Examination General: Pale, Not in acute distress, alert, oriented x3. Patient following commands. HEENT: Normocephalic, atraumatic, moist mucous membranes Respiratory/pulmonary: Clear lungs bilaterally, vesicular murmurs present in almost all lung beach, no associated crackles or wheezes. Cardiovascular: Normal heart sounds S1 and S2 with no associated murmurs Abdomen: Abdomen nondistended, there is no pain to palpation in any of the abdominal quadrants, no palpable masses. Extremities: There is no peripheral edema present at the lower extremities. Sensation preserved, but no movement. Peripheral Pulses: 3+ Radial (R). 3+ Radial (L). 3+ Dorsalis pedis (R). 3+ Dorsalis pedis(L) Skin: No rashes or pruritus laboratory and microbiology Laboratory Tests 10/14/25 04:32 Test 10/14/25 04:32 Range/Units Serum Glucose 100 74-106 mg/dL Microbiology Date/Time Source Procedure Growth Status 10/12/25 23:51 Stool Clostridium difficile Toxin Assay - Final Complete 10/12/25 20:05 Blood Blood Culture - Preliminary NO GROWTH AFTER 24 HOURS OF INCUBATION. Resulted Problem List/Assessment/Plan Problem List/Assessment/Plan #Sepsis likely due to possible acute bacterial gastroenteritis -IV Rocephin -IV Flagyl IV fluids -stool WBC: Few #Possible Acute Upper GI Bleeding #Acute Severe Anemia, due to GI blood loss -Stool occult blood test positive -Hemoglobin of with the with the patient 7.0, improving -Type and Screen: done -1 unit RBC received 10/13/25, New RBC unit 10/14/25 -Monitor H&H, last HB levlel 8.2mg /dl -GI consult: EGD treschedule for 10/15/25 #TANVIR due to VMN #CKD Stage IV - FENa 0.3 -IV fluid -Renal ultrasound showed no hydronephrosis -Nephology consult: done continue current management #Acute NSTEMI likely type 2 possible due to severe anemia -Elevated troponins: 464, 824, -Troponins new level. 974. 982, 912 -Echocardiogram: EF50% -Cardiology consult: continue current management. #Acute SVT/V-tach Patient seen to have 4 runs SVT/V-tach on the telemetry with the longest lasting for 17 seconds Cardio consult Metoprolol succinate 50mg po daily #History of alcohol abuse Counseling about alcohol cessation. #Obesity, grade 2 BMI 35.2 -patient counseled on diet, exercise, lifestyle modifications for 18 minutes. Diet: Clear liquid diet, NPO after midnight for possible EGD PPI prophylaxis: Protonix DVT prophylaxis: Held due to low Hb, SCDs Goals of care addressed with the patient for more than 30 minutes: Code status:Full code PCP: Dr. Martinez Case discussed with , patient and nurse Plan discussed with: Patient My Orders My Orders Orders - JUAN MARIA RESIDENT Procedure Category Date Status Time Atorvastatin (Lipitor) PHA 10/13/25 In Process 22:00 Sucralfate Susp PHA 10/13/25 In Process (Carafate Susp) 22:00 Iron Sucrose Complex PHA 10/13/25 In Process (Venofer) 15:30 Npo Except Ice Chips WILD 10/13/25 In Process 16:27 Npo (Nothing By DIET 10/13/25 Transmitted Mouth) Diet Dinner Acetaminophen Tab Or PHA 10/13/25 In Process Cap (Tylenol Tablet 16:30 Hydrocodone-Acet PHA 10/13/25 In Process 5/325mg Tab ([place] 16:30 Morphine Sulfate PHA 10/13/25 In Process Injection 16:30 Lisinopril Tablet PHA 10/14/25 In Process (Zestril Tablet) 10:00 CC Plasma Assessment Blood Product Administration S: 1126 Visit Coding STANDARD RES Billing Provider: FILIPE BELL MD Date of Service if different f: Oct 14, 2025 Common Visit Codes: [id number] INP/OBS CARE(HIGH) JUAN MARIA RESIDENT Oct 14, 2025 09:42
[2025-10-14] MEDS: POTASSIUM CHL 20MEQ/100ML 100 ML IV ONE ×2 (11:32→16:49)
--- NOTE | 2025-10-14 12:14 | ECG ---
[facility] Test Date: 2025-10-14 Test Time: 12:08:05 Pat Name: PORSHA HARRISON Department: Room: 0236T A Gender: M Chief Contract Officer: johnnie : 1960 Requested By: JUAN MARIA Order Number: [id number] Reading MD: Chavez Magana Measurements Intervals [place] Rate: 86 P: -9 MN: 160 QRS: 3 QRSD: 140 T: 60 QT: 419 QTc: 502 Interpretive Statements Sinus rhythm Atrial premature complex Right bundle branch block Electronically Signed On 10-16-2025 8:20:59 PST by Chavez Magana Please click the below link to view image of tracing.
[2025-10-14] MEDS: METOPROLOL SUCCINATE XL 50 MG TAB PO ONE (12:49)
[2025-10-14] MEDS: MAGNESIUM SULFATE 1GM/100ML 100 ML IV ONE (13:33)
[2025-10-14 14:36] LABS: Triglycerides 111 mg/dL (< 150)
[2025-10-14 14:38] LABS: Cholesterol 101 mg/dL (< 200)
[2025-10-14 14:39] LABS: HDL Cholesterol 36 mg/dL (40-59)
--- NOTE | 2025-10-14 16:37 | DVHPN2 ---
Progress Note Date Seen: Oct 14, 2025 Resident Creating Document: MADELINE GILMAN RESIDENT Has the PT tested + for MRSA If YES, has PT been informed?: No Medical Necessity Reason Pt with a Central, PICC or Fol: No Subjective Review of Systems Patient seen to have 4 runs SVT/V-tach on the telemetry with the longest lasting for 17 seconds Denies any chest pain, shortness of breath Patient reports: No new complaints, Feels better Objective vital signs Vital Sign Date Time Temp Pulse Resp B/P (MAP) Pulse Ox O2 Delivery O2 Flow Rate FiO2 10/14/25 13:00 98.0 84 17 145/74 (97) 97 98.0 10/13/25 21:50 Room Air* 0 21 Total Intake and Output 10/13/25 10/13/25 10/14/25 15:00 23:00 07:00 Intake Total 900 ml 225 ml Output Total 0 ml Balance 900 ml 225 ml medications Current Medications Medications Dose Ordered Sig/New Route Start Time Stop Time Status Last Admin Dose Admin Metronidazole 100 ml @ 100 mls/hr Q8HR IV 10/13/25 02:10 10/14/25 13:48 100 MLS/HR Ceftriaxone Sodium 50 ml @ 100 mls/hr DAILY@09 IV 10/14/25 09:00 10/14/25 09:00 100 MLS/HR Pantoprazole Sodium 40 mg BID IV 10/13/25 10:00 10/14/25 09:00 40 MG Atorvastatin Calcium 80 mg HS PO 10/13/25 22:00 10/13/25 22:16 80 MG Sucralfate 1 gm TID@0600,1130,2200 PO 10/13/25 22:00 10/14/25 05:55 1 GM Iron Sucrose 110 ml @ 110 mls/hr DAILY@1200 IV 10/13/25 15:30 10/17/25 15:29 10/14/25 12:48 110 MLS/HR Acetaminophen 500 mg Q4HPRN PRN PO 10/13/25 16:30 Acetaminophen/ Hydrocodone Bitart 1 tab Q4HPRN PRN PO 10/13/25 16:30 10/14/25 13:30 1 TAB Morphine Sulfate 1 mg Q4HPRN PRN IV 10/13/25 16:30 Metoprolol Succinate 50 mg DAILY PO 10/15/25 10:00 Examination Skin - Patients skin is warm and dry. HEENT - normocephalic, atraumatic, dry mucous membranes, no scleral icterus, no conjunctival pallor Neck - full ROM, no LAD, no JVD Pulmonary - B/L clear breath sounds without any wheezing or rales cardiovascular - regular S1,S2 heard, no murmurs or additional sounds appreciated. peripheral pulses normal radial 2+, pedal 2+. GI - mild tenderness to palpation in the epigastric region. no hepatospleenomegaly. Bowel sounds normoactive Neurological - Patient is A/O X 3 . Bilateral upper extremity strength 5/5, bilateral lower extremity strength 5/5, no facial droop, normal speech, no tremor, no sensory deficiets. laboratory and microbiology Laboratory Tests 10/14/25 04:32 Test 10/14/25 04:32 Range/Units Serum Glucose 100 74-106 mg/dL Microbiology Date/Time Source Procedure Growth Status 10/12/25 23:51 Stool Clostridium difficile Toxin Assay - Final Complete 10/12/25 23:19 Voided Urine Urine Culture - Preliminary Resulted 10/12/25 20:05 Blood Blood Culture - Preliminary NO GROWTH AFTER 24 HOURS OF INCUBATION. Resulted Problem List/Assessment/Plan Problem List/Assessment/Plan NSTEMI likely type 2 from demand ischemia Nonsustained V-tach ?SVT Acute GI bleeding likely due to peptic ulcer disease Peptic ulcer disease likely due to prolonged NSAIDs use h/o CAD with 70% stenosis in proximal ostial RCA ( angiogram 2020 ) High anion gap metabolic acidosis TANVIR on CKD likely prerenal Plan/Recommendation - given the patient's acute bleeding, no antiplatelet therapy, no immediate coronary intervention - monitor H&H and keep hemoglobin above 7 - patient cleared for GI procedure - avoid NSAIDs - patient would benefit from outpatient stress test - started on metoprolol succinate 50 daily - echo showed mildly hypokinetic apex, mild LVH, LVEF 55% Goals of care discussed with the patient Plan discussed with Dr. Daley short runs of tach , start BB pt pending GI scope which is urgent and necessary and pt cleared yesterday not a candidate for cv workup for now Plan discussed with: Patient, Other (RN) CC Plasma Assessment Blood Product Administration S: [id number] MADELINE GILMAN RESIDENT Oct 14, 2025 16:37 HELEN DALEY MD Oct 14, 2025 17:06
--- NOTE | 2025-10-14 16:44 | DVHPN2 ---
Progress Note - Dictate Date Seen: Oct 14, 2025 Has the PT tested + for MRSA If YES, has PT been informed?: No Medical Necessity Reason Pt with a Central, PICC or Fol: No Subjective Patient had an episode of SVT this morning His troponins are still rising vital signs Vital Sign Date Time Temp Pulse Resp B/P (MAP) Pulse Ox O2 Delivery O2 Flow Rate FiO2 10/14/25 13:00 98.0 84 17 145/74 (97) 97 98.0 10/13/25 21:50 Room Air* 0 21 Total Intake and Output 10/13/25 10/13/25 10/14/25 15:00 23:00 07:00 Intake Total 900 ml 225 ml Output Total 0 ml Balance 900 ml 225 ml medications Current Medications Medications Dose Ordered Sig/New Route Start Time Stop Time Status Last Admin Dose Admin Metronidazole 100 ml @ 100 mls/hr Q8HR IV 10/13/25 02:10 10/14/25 13:48 100 MLS/HR Ceftriaxone Sodium 50 ml @ 100 mls/hr DAILY@09 IV 10/14/25 09:00 10/14/25 09:00 100 MLS/HR Pantoprazole Sodium 40 mg BID IV 10/13/25 10:00 10/14/25 09:00 40 MG Atorvastatin Calcium 80 mg HS PO 10/13/25 22:00 10/13/25 22:16 80 MG Sucralfate 1 gm TID@0600,1130,2200 PO 10/13/25 22:00 10/14/25 05:55 1 GM Iron Sucrose 110 ml @ 110 mls/hr DAILY@1200 IV 10/13/25 15:30 10/17/25 15:29 10/14/25 12:48 110 MLS/HR Acetaminophen 500 mg Q4HPRN PRN PO 10/13/25 16:30 Acetaminophen/ Hydrocodone Bitart 1 tab Q4HPRN PRN PO 10/13/25 16:30 10/14/25 13:30 1 TAB Morphine Sulfate 1 mg Q4HPRN PRN IV 10/13/25 16:30 Metoprolol Succinate 50 mg DAILY PO 10/15/25 10:00 objective General: NAD, AAOX3 Chest: lung beach clear to auscultation Heart: RRR, no murmur Abdomen: non-distended,+ epigastric tenderness to palpation, +BS laboratory and microbiology Laboratory Tests 10/14/25 04:32 Test 10/14/25 04:32 Range/Units Serum Glucose 100 74-106 mg/dL Problems(with codes): (1) Heme positive stool (2) Melena (3) Epigastric abdominal pain Prognosis Assessment plan Patient appears to be unstable at this time for proceeding with an endoscopy test I would recommend continue Protonix 40 mg IV q.12 hours Carafate suspension 1 g p.o. 4 times a day Clear liquid diet Monitor labs If hemoglobin drops below seven we will transfuse one more unit PRBC I will be standing by for endoscopy once patient medically stabilizes Plan discussed with: Other (Dr Sands and Nurse) CC Plasma Assessment Blood Product Administration S: [id number] MELVINA CAPPS MD Oct 14, 2025 16:44
[2025-10-14] MEDS: POTASSIUM CHLORIDE 60 MEQ, LIDOCAINE 1% (LOCAL ANESTH.) 6 ML in SODIUM CHL 0.9% 500 ML IV ONE (18:43)
[2025-10-14 18:57] LABS: Hematocrit 25.7 % (41.0-53.0); Hemoglobin 8.6 g/dL (13.5-17.5)
[2025-10-15] VITALS (13 sets, daily range): BP systolic 127–163; BP diastolic 63–99; PULSE 72–83; RESP 15–20; TEMP 96–98.4; O2SAT 96–100
[2025-10-15 06:10] LABS: Hematocrit 24.0 % (41.0-53.0); Hemoglobin 8.2 g/dL (13.5-17.5)
[2025-10-15 06:19] LABS: Sodium 143 mmol/L (136-145)
[2025-10-15 06:20] LABS: Anion Gap 10 (5-15); Carbon Dioxide 23 mmol/L (20-31)
[2025-10-15 06:21] LABS: Calcium 8.4 mg/dL (8.7-10.4); Chloride 110 mmol/L (98-107); Potassium 3.2 mmol/L (3.5-5.1)
[2025-10-15 06:25] LABS: BUN/Creatinine Ratio 8.3 (10.0-20.0); Glucose 103 mg/dL (74-106)
[2025-10-15 06:30] LABS: Blood Urea Nitrogen 7 mg/dL (9-23)
[2025-10-15] MEDS: POTASSIUM CHL 20MEQ/100ML 100 ML IV SCH (10:37)
[2025-10-15] MEDS: METOPROLOL SUCCINATE XL 50 MG TAB PO SCH (10:49)
[2025-10-15] MEDS ORDERED: METOCLOPRAMIDE HCL 5MG/ml INJ 2ml VIAL ONE (14:57)
[2025-10-15] MEDS ORDERED: ONDANSETRON HCL 4 MG/2 ML VIAL ONE (14:57)
[2025-10-15] MEDS ORDERED: LIDOCAINE 2% (LOCAL ANESTH.) PF 5ml SDV ONE (14:57)
[2025-10-15] MEDS ORDERED: PROPOFOL 10 MG/ML 20 ML IV ONE (15:00)
--- NOTE | 2025-10-15 15:40 | DVHOP2 ---
Operative Report DATE OF OPERATION: 10/15/25 PROCEDURE: Upper Endoscopy with biopsy. PREOPERATIVE INDICATION: The patient is a 64 -year-old male undergoing endoscopy for anemia and melena POSTOPERATIVE DIAGNOSES: 1. Mild gastritis involving the proximal body of the stomach and mild antral gastritis with superficial erosions and tiny ulcers 2. Otherwise normal examination of the 2nd and 3rd part of the duodenum with no fresh blood in the upper GI tract and good bile drainage PROCEDURE PERFORMED BY: Melvina Becker GI NURSE: Trisha SCOPE: Olympus videoendoscope. ASA CLASS: 3 PREOPERATIVE MEDICATIONS: Mac sedation, Marcin Thompson PROCEDURE IN DETAIL: After obtaining an informed consent, the patient was placed on left lateral decubitus position. The patient was then sedated with the above medications. A bite block was placed between his teeth. The endoscope was then passed through the oropharynx, into the esophagus, and through the stomach and pylorus up to the second and third part of the duodenum. The endoscope was then withdrawn. The 2nd and 3rd part of the duodenal and the duodenal bulb were normal. There was good bile drainage The pre-pyloric area antrum and distal body showed mild gastritis with pre- pyloric antral gastric erosions On retroflexion the patient had mild gastritis and a superficial erosion and tiny ulcer noted in the cardia of the stomach Gastric biopsies were obtained. There was no fresh or old blood in the upper GI tract. The endoscope was then withdrawn into distal esophagus Patient had no significant hiatal hernia no esophagitis. The remaining distal and proximal esophagus and oropharynx were unremarkable The patient tolerated the procedure well without difficulty. COMPLICATIONS : None SPECIMENS: Duodenal biopsies Gastric biopsies DISPOSITION: Transfer back to the floor Stable PLAN: 1. Await for biopsy result 2. Will place pt on Protonix 40 mg bid IV 3. Discontinue IV Protonix drip and octreotide drip 4. Start clear liquid diet advance as tolerated 5. Monitor H&H q.12 hours for another 24 hours 6. Once medically stabilized and outpatient elective colonoscopy would be scheduled MELVINA BECKER MD Oct 15, 2025 15:40
--- NOTE | 2025-10-15 16:12 | DVHPNRES ---
Progress Note Date Seen: Oct 15, 2025 Resident Creating Document: JUAN MARIA RESIDENT Has the PT tested + for MRSA If YES, has PT been informed?: No Medical Necessity Reason Pt with a Central, PICC or Fol: No Subjective Review of Systems Review of Systems Casper Tomlinson tyler 64-year-old male with past medical history of Anxiety, Depression, HTN, Schizophrenia, chronic back pain, hypertension. The patient [facility] to the [facility] with chief complains of 1 day of dizziness and abdominal pain 8/10, localized in the epigastrium, cramp like, with no irradiation, with no exacerbating or relieving factor. The patient also complaint of 1 month of generalized weakness and dark stools. During hospital course the patient also had 1 black color bowel movement. On further questioning, the patient reports he has been taking motrin regularly due to chronic back pain. Due to dizziness and weakness the patient reports a near syncope. The patient denies fever, chill, diarrhea, vomit, hematochezia or other symptoms. He was admitted for further assessment and management. Past medical Hx: surgical history: Denies Family history: Reviewed, noncontributory Personal history: Ex heavy drinker, denies smoking, drug use. Lives with: Family PCP: Dr. Gracia home meds: Lipitor 20 mg, lisinopril, metoprolol, [place] 5 mg TID, gabapentin, fluoxetine, aripiprazole, quetiapine, zolpidem On 10/13/25, the patient was seen and examined at the bedside, patient is still complaining of dizziness and generalized weakness. The hemoglobin dropped to 7.0, 1 unit of RBC were transfused today. Due to Troponin elevation a cardiac consult was placed, they report elevation of troponins due to NSTEMI type 2 and recommend continue with current management. Due to melena and positive stool occult blood, GI consult was placed. Carafate was initiated. Repeat H&H has been ordered. We will continue following this patient closely. On 11/14/24, the patient was examined and evaluated at bedside. Vital signs, labs and chart was reviewed. The patient reports feeling better with improvement on weakness. The patient hemoglobin has improved to 8.2mg/dl. GI is on board, they recommended EGD. Today the patient presented episode of ventricular tachycardia, Cardiology was consult and Metoprolol dose was increased. the patient will have the EGD procedure 10/15/25. GI ordered 1 RBC unit and 1 FFP unit. We will continue following up the progress of this patient closely. On 11/15/24, the patient was examined and evaluated at bedside. Vital signs, labs and chart was reviewed. The patient reports feeling better with improvement on weakness. The patient hemoglobin is 8.2mg/dl. GI is on board, they recommended 1 RBC unit and 1 FFP unit, these were given today. The EGD has been rescheduled for 10/16/25. We will continue following up the progress of this patient closely. ROS: Constitutional: improvement of generalize weakness and dizziness. HEENT: Denies changes in vision and hearing. Respiratory: denies of cough, nasal congestion Cardiovascular: Denies chest discomfort or palpitations GI: epigastric abdominal pain improved 11/08, denies nausea, vomiting and diarrhea. : Denies dysuria and urinary frequency. Musculoskeletal: normal ROM, normal strength. Skin: Denies rash and pruritus. Neurological: improvement of dizziness, Denies headache, vision or hearing problems Objective vital signs Vital Sign Date Time Temp Pulse Resp B/P (MAP) Pulse Ox O2 Delivery O2 Flow Rate FiO2 10/15/25 15:45 74 19 129/79 (96) 98 10/15/25 15:20 97.7 97.7 10/15/25 15:20 Mask 6.0 10/15/25 15:20 100 Total Intake and Output 10/14/25 10/14/25 10/15/25 15:00 23:00 07:00 Intake Total 250 ml 900 ml Balance 250 ml 900 ml medications Current Medications Medications Dose Ordered Sig/New Route Start Time Stop Time Status Last Admin Dose Admin Metronidazole 100 ml @ 100 mls/hr Q8HR IV 10/13/25 02:10 10/15/25 14:16 100 MLS/HR Ceftriaxone Sodium 50 ml @ 100 mls/hr DAILY@09 IV 10/14/25 09:00 10/15/25 10:36 100 MLS/HR Pantoprazole Sodium 40 mg BID IV 10/13/25 10:00 10/15/25 10:37 40 MG Atorvastatin Calcium 80 mg HS PO 10/13/25 22:00 10/14/25 23:20 80 MG Sucralfate 1 gm TID@0600,1130,2200 PO 10/13/25 22:00 10/15/25 06:42 1 GM Iron Sucrose 110 ml @ 110 mls/hr DAILY@1200 IV 10/13/25 15:30 10/17/25 15:29 10/14/25 12:48 110 MLS/HR Acetaminophen 500 mg Q4HPRN PRN PO 10/13/25 16:30 Acetaminophen/ Hydrocodone Bitart 1 tab Q4HPRN PRN PO 10/13/25 16:30 10/15/25 06:44 1 TAB Morphine Sulfate 1 mg Q4HPRN PRN IV 10/13/25 16:30 Metoprolol Succinate 50 mg DAILY PO 10/15/25 10:00 10/15/25 10:49 50 MG Examination General: Pale, not in acute distress, alert, oriented x3. Patient following commands. HEENT: Normocephalic, atraumatic, moist mucous membranes Respiratory/pulmonary: Clear lungs bilaterally, vesicular murmurs present in almost all lung beach, no associated crackles or wheezes. Cardiovascular: Normal heart sounds S1 and S2 with no associated murmurs Abdomen: Abdomen nondistended, there is no pain to palpation in any of the abdominal quadrants, no palpable masses. Extremities: There is no peripheral edema present at the lower extremities. Sensation preserved, but no movement. Peripheral Pulses: 3+ Radial (R). 3+ Radial (L). 3+ Dorsalis pedis (R). 3+ Dorsalis pedis(L) Skin: Pale. No rashes or pruritus Neurologic: alert, oriented x3, no neurological deficits. laboratory and microbiology Laboratory Tests 10/15/25 05:03 10/14/25 04:32 Test 10/15/25 05:03 Range/Units Serum Glucose 103 74-106 mg/dL Microbiology Date/Time Source Procedure Growth Status 10/12/25 23:51 Stool Clostridium difficile Toxin Assay - Final Complete 10/12/25 23:19 Voided Urine Urine Culture - Final Complete 10/12/25 20:05 Blood Blood Culture - Preliminary NO GROWTH AFTER 48 HOURS OF INCUBATION. Resulted Problem List/Assessment/Plan Problem List/Assessment/Plan #Sepsis likely due to possible acute bacterial gastroenteritis -IV Rocephin -IV Flagyl IV fluids -stool WBC: Few #Possible Acute Upper GI Bleeding #Acute Severe Anemia, due to acute GI blood loss -Stool occult blood test: positive -Hemoglobin of with the with the patient 7.0, improving -Type and Screen: done -1 unit RBC received 10/13/25, New RBC unit 10/14/25 -Monitor H&H, last HB levlel 8.2mg /dl -GI consult: EGD treschedule for 10/15/25 #TANVIR due to VMN #CKD Stage IV - FENa 0.3 -IV fluid -Renal ultrasound showed no hydronephrosis -Nephology consult: done continue current management #Acute NSTEMI likely type 2 possible due to severe anemia -Elevated troponins: 464, 824, -Troponins new level. 974. 982, 912 -Echocardiogram: EF50% -Cardiology consult: continue current management. #Acute SVT/V-tach Patient seen to have 4 runs SVT/V-tach on the telemetry with the longest lasting for 17 seconds Cardio consult Metoprolol succinate 50mg po daily #History of alcohol abuse Counseling about alcohol cessation. #Obesity, grade 2 BMI 35.2 -patient counseled on diet, exercise, lifestyle modifications for 18 minutes. Diet: Clear liquid diet, NPO after midnight for possible EGD PPI prophylaxis: Protonix DVT prophylaxis: Held due to low Hb, SCDs Goals of care addressed with the patient for more than 30 minutes: Code status:Full code PCP: Dr. Martinez Case discussed with , patient and nurse Plan discussed with: Patient My Orders My Orders Orders - JUAN MARIA RESIDENT Procedure Category Date Status Time Obtain Consent For: ORDERS 10/14/25 Transmitted 17:16 Pulse Ox Cont Per Day RT 10/14/25 Logged 17:16 Vital Signs WILD 10/14/25 In Process 17:16 Pulse Ox Cont Per Day RT 10/14/25 Logged 17:22 Vital Signs WILD 10/14/25 In Process 17:22 Npo After Midnight WILD 10/14/25 In Process 18:13 Npo After Midnight WILD 10/15/25 In Process 15:59 Npo (Nothing By DIET 10/16/25 Transmitted Mouth) Diet Breakfast Complete Blood Count LAB 10/16/25 Verified 04:00 Basic Metabolic Panel LAB 10/16/25 Verified 04:00 CC Plasma Assessment Blood Product Administration S: [id number] Visit Coding STANDARD RES Billing Provider: FILIPE BELL MD Date of Service if different f: Oct 15, 2025 Common Visit Codes: 27281-CSQALEYONI INP/OBS CARE(HIGH) JUAN MARIA RESIDENT Oct 15, 2025 16:12
[2025-10-16 01:00] VITALS: BP 140/89; PULSE 78; RESP 16; TEMP 97.8; O2SAT 96
[2025-10-16 05:00] VITALS: BP 150/89; PULSE 77; RESP 17; TEMP 97.8; O2SAT 96
[2025-10-16 05:30] LABS: Hematocrit 28.6 % (41.0-53.0); Hemoglobin 9.8 g/dL (13.5-17.5); Mean Corpuscular Hemoglobin 28.3 pg (28.0-32.0); Mean Corpuscular Volume 82.3 fL (80.0-100.0); Nucleated Red Blood Cells % 0.1 %
[2025-10-16 05:41] LABS: Sodium 142 mmol/L (136-145)
[2025-10-16 05:42] LABS: Anion Gap 12 (5-15); Carbon Dioxide 22 mmol/L (20-31); Chloride 108 mmol/L (98-107); Potassium 3.2 mmol/L (3.5-5.1)
[2025-10-16 05:47] LABS: BUN/Creatinine Ratio 8.8 (10.0-20.0)
[2025-10-16 05:52] LABS: Blood Urea Nitrogen 8 mg/dL (9-23); Glucose 111 mg/dL (74-106)
[2025-10-16 06:21] LABS: Calcium 8.9 mg/dL (8.7-10.4)
[2025-10-16 08:00] VITALS: PULSE 79; PULSE 86; RESP 16; O2SAT 96
[2025-10-16 08:31] VITALS: BP 152/79; PULSE 73; RESP 17; TEMP 98.7; O2SAT 94
[2025-10-16] MEDS: POTASSIUM EFFERVESENT TAB 25 MEQ PO ONE (09:01)
[2025-10-16] MEDS: POTASSIUM CHL 20MEQ/100ML 100 ML IV SCH (09:06)
--- NOTE | 2025-10-16 09:54 | DVHDSRES ---
Discharge Summary Date of Admission Resident Creating Document: JUAN MARIA RESIDENT Oct 12, 2025 at 23:50 Date of Discharge: Oct 16, 2025 Admitting Diagnosis #Sepsis likely due to possible acute bacterial gastroenteritis #Acute NSTEMI likely type 2 possible due to severe anemia #Possible Acute Upper GI Bleeding #Acute Severe Anemia, due to acute GI blood loss #TANVIR due to VMN Wounds: No wounds present during admission. Labs/Diagnostic Data: Laboratory Results Test 10/16/25 04:48 10/14/25 13:32 10/14/25 04:32 10/13/25 09:11 White Blood Count 8.0 10^3/uL (4.4-10.8) Red Blood Count 3.48 10^6/uL (4.5-5.90) Hemoglobin 9.8 g/dL (13.5-17.5) Hematocrit 28.6 % (41.0-53.0) Mean Corpuscular Volume 82.3 fL (80.0-100.0) Mean Corpuscular Hemoglobin 28.3 pg (28.0-32.0) Mean Corpuscular Hemoglobin Concent 34.4 g/dL (32.0-36.0) Red Cell Distribution Width 17.9 % (11.8-14.3) Platelet Count 230 10^3/uL (140-450) Mean Platelet Volume 8.1 fL (6.9-10.8) Neutrophils (%) (Auto) 61.9 % (37.0-80.0) Lymphocytes (%) (Auto) 26.6 % (10.0-50.0) Monocytes (%) (Auto) 6.8 % (0.0-12.0) Eosinophils (%) (Auto) 4.1 % (0.0-7.0) Basophils (%) (Auto) 0.6 % (0.0-2.0) Neutrophils # (Auto) 4.9 10 ^3/uL (1.6-8.6) Lymphocytes # (Auto) 2.1 10 ^3/uL (0.4-5.4) Monocytes # (Auto) 0.5 10 ^3/uL (0-1.3) Eosinophils # (Auto) 0.3 10 ^3/uL (0-0.8) Basophils # (Auto) 0 10 ^3/uL (0-0.2) Nucleated Red Blood Cells 0.1 % Sodium Level 142 mmol/L (136-145) Potassium Level 3.2 mmol/L (3.5-5.1) Chloride Level 108 mmol/L (98-107) Carbon Dioxide Level 22 mmol/L (20-31) Anion Gap 12 (5-15) Blood Urea Nitrogen 8 mg/dL (9-23) Creatinine 0.91 mg/dL (0.700-1.30) Glomerular Filtration Rate Calc 95 mL/min (>90) BUN/Creatinine Ratio 8.8 (10.0-20.0) Serum Glucose 111 mg/dL (74-106) Calcium Level 8.9 mg/dL (8.7-10.4) Troponin I High Sensitivity 912 ng/L (</=54) Triglycerides Level 111 mg/dL (< 150) Cholesterol Level 101 mg/dL (< 200) LDL Cholesterol 50 mg/dL (< 100) HDL Cholesterol 36 mg/dL (40-59) Magnesium Level 2.1 mg/dL (1.6-2.6) Prothrombin Time 11.2 sec (9.3-11.8) Prothrombin Time INR 1.06 (0.9-1.15) Test 10/13/25 08:26 10/13/25 06:10 10/13/25 03:11 10/12/25 23:51 Iron Level 61 ug/dL (65-175) Total Iron Binding Capacity 262 ug/dL (250-425) Percent Iron Saturation 23.3 % (20-55) Ferritin 15.0 ng/mL (22-322) C-Reactive Protein High Sensitivity 0.92 mg/dL (<1.0) Vitamin B12 Level 351 pg/mL (211-911) Vitamin D 25-Hydroxy 62.8 ng/mL (30.0-100) Thyroid Stimulating Hormone (TSH) 2.55 uIU/mL (0.55-4.78) Erythrocyte Sedimentation Rate 13 mm/hr (0-20) Reticulocyte Count (auto) 2.19 % (0.5-1.5) Activated Partial Thromboplast Time 23.3 SEC (24.5-34.5) Hemoglobin A1c 6.1 % A1C (<5.7) Lactic Acid Level 1.5 mmol/L (0.4-2.0) Total Bilirubin 0.2 mg/dL (0.2-1.0) Aspartate Amino Transferase (AST) 39 U/L (13-40) Alanine Aminotransferase (ALT) 32 U/L (7-40) Alkaline Phosphatase 78 U/L (46-116) Total Protein 5.5 g/dL (5.7-8.2) Albumin 3.2 g/dL (3.2-4.8) Lipase 32 U/L (12-53) Stool Occult Blood Positive (Negative) Stool Occult Blood Sample #3 (Negative) Stool for White Cells Few Test 10/12/25 23:19 10/12/25 21:39 10/12/25 20:03 Urine Creatinine 113.51 mg/dL (30.0-125.0) Urine Protein/Creatinine Ratio 0.21 Urine Sodium 39 mmol/L (40-220) Urine Total Protein 23.6 mg/dL (1-14) Urine Color Light-yellow (Yellow) Urine Clarity Clear (Clear) Urine pH 6.5 (5.0-9.0) Urine Specific Sharon 1.020 (1.001-1.035) Urine Protein Negative (Negative) Urine Ketones Negative (Negative) Urine Blood Negative /uL (Negative) Urine Nitrite Negative (Negative) Urine Bilirubin Negative (Negative) Urine Urobilinogen Normal mg/dL (Negative) Urine Leukocyte Esterase Negative /uL (Negative) Urine RBC <1 /hpf (0 - 3) Urine Microscopic WBC 1 /HPF (0-3) Urine Squamous Epithelial Cells Few /hpf (<5) Urine Bacteria Few /hpf (None Seen) Urine Glucose Normal mg/dL (Normal) Urine Opiates Screen Pos (NEGATIVE) Urine Fentanyl Screen Neg (NEGATIVE) Urine Barbiturates Screen Neg (NEGATIVE) Urine Phencyclidine Screen Neg (NEGATIVE) Urine Amphetamines Screen Neg (NEGATIVE) Urine Benzodiazepines Screen Neg (NEGATIVE) Urine Cocaine Screen Neg (NEGATIVE) Urine Cannabinoids Screen Neg (NEGATIVE) B-Type Natriuretic Peptide 54.08 pg/mL (0-100) Other Laboratory Tests 10/16/25 04:48 Brief Hx & Hospital Course: Casper Tomlinson tyler 64-year-old male with past medical history of Anxiety, Depression, HTN, Schizophrenia, chronic back pain, hypertension. The patient came to the [facility] with chief complains of 1 day of dizziness and abdominal pain 8/10, localized in the epigastrium, cramp like, with no irradiation, with no exacerbating or relieving factor. The patient also complaint of 1 month of generalized weakness and dark stools. During hospital course the patient also had 1 black color bowel movement. On further questioning, the patient reports he has been taking motrin regularly due to chronic back pain. Due to dizziness and weakness the patient reports a near syncope. The patient denies fever, chill, diarrhea, vomit, hematochezia or other symptoms. He was admitted for further assessment and management. Past medical Hx: surgical history: Denies Family history: Reviewed, noncontributory Personal history: Ex heavy drinker, denies smoking, drug use. Lives with: Family PCP: Dr. Gracia home meds: Lipitor 20 mg, lisinopril, metoprolol, [place] 5 mg TID, gabapentin, fluoxetine, aripiprazole, quetiapine, zolpidem Hospital Course: During his admission in [facility] the patient was evaluated and assessed as follow: On 10/13/25, the patient was seen and examined at the bedside, patient is still complaining of dizziness and generalized weakness. The hemoglobin dropped to 7.0, 1 unit of RBC were transfused today. Due to Troponin elevation a cardiac consult was placed, they report elevation of troponins due to NSTEMI type 2 and recommend continue with current management. Due to melena and positive stool occult blood, GI consult was placed. Carafate was initiated. Repeat H&H has been ordered. We will continue following this patient closely. On 11/14/24, the patient was examined and evaluated at bedside. Vital signs, labs and chart was reviewed. The patient reports feeling better with improvement on weakness. The patient hemoglobin has improved to 8.2mg/dl. GI is on board, they recommended EGD. Today the patient presented episode of ventricular tachycardia, Cardiology was consult and Metoprolol dose was increased. the patient will have the EGD procedure 10/15/25. GI ordered 1 RBC unit and 1 FFP unit. We will continue following up the progress of this patient closely. On 11/15/24, the patient was examined and evaluated at bedside. Vital signs, labs and chart was reviewed. The patient reports feeling better with improvement on weakness. The patient hemoglobin is 8.2mg/dl. GI is on board, they recommended 1 RBC unit and 1 FFP unit, these were given today. The EGD has been rescheduled for 10/16/25. We will continue following up the progress of this patient closely. On 10/16/25, the patient reports feeling better. EGD was performed on 10/15/25, that showed: Mild gastritis involving the proximal body of the stomach and mild antral gastritis with superficial erosions and tiny ulcer. Otherwise normal examination of the 2nd and 3rd part of the duodenum with no fresh blood in the upper GI tract and good bile drainage. GI team recommended colonoscopy as an out patient. Due to clinical improvement, the patient will be discharge today and follow up with d/c clinic, PCP, cardiology and GI in 1 week. ROS: Constitutional: Denies generalize weakness and dizziness. HEENT: Denies changes in vision and hearing. Respiratory: denies of cough, nasal congestion Cardiovascular: Denies chest discomfort or palpitations GI: epigastric abdominal pain improved /, denies nausea, vomiting and diarrhea. : Denies dysuria and urinary frequency. Musculoskeletal: normal ROM, normal strength. Skin: Denies rash and pruritus. Neurological: improvement of dizziness, Denies headache, vision or hearing problems Physical Exam General: not in acute distress, alert, oriented x3. Patient following commands. HEENT: Normocephalic, atraumatic, moist mucous membranes Respiratory/pulmonary: Clear lungs bilaterally, vesicular murmurs present in almost all lung beach, no associated crackles or wheezes. Cardiovascular: Normal heart sounds S1 and S2 with no associated murmurs Abdomen: Abdomen nondistended, there is no pain to palpation in any of the abdominal quadrants, no palpable masses. Extremities: There is no peripheral edema present at the lower extremities. Sensation preserved, but no movement. Peripheral Pulses: 3+ Radial (R). 3+ Radial (L). 3+ Dorsalis pedis (R). 3+ Dorsalis pedis(L) Skin: Pale. No rashes or pruritus Neurologic: alert, oriented x3, no neurological deficits. Consults/Reason for consult GI: for Upper vs lower GI bleeding Nephrology: CKD, TANVIR Cardiology: troponin elevation, sinus tachycardia/vtach Operations or Procedures ORDERING PHYSICIAN: JACOB SCHULER RESIDENT PROCEDURE(s): ABPL - CT AB PEL WO CON-NO ORAL OR IV REASON: abd pain ORDER NUMBER(s): [id number], ACCESSION NUMBER(s): [id number] Exam: CT CT AB PEL WO CON-NO ORAL OR IV History: abd pain Comparison Study: None Technique: Multidetector spiral CT of the abdomen was performed from lung bases to pubic symphysis. Imaging was performed without IV contrast. Axial, coronal and sagittal multiplanar reformats were obtained from the axial data set by the technologist. Radiation Dose : 1. Abdomen/Pelvis: CTDIvol 22.1 mGy, DLP 1297 mGy*cm. Findings: Evaluation of solid organs is limited due to lack of intravenous contrast use and patient motion artifact. Lung Bases: Dependent atelectasis. Cardiomegaly. No pleural or pericardial effusion. Liver: The liver is normal in size. No focal lesions. Gallbladder and Biliary Tree: Gallbladder is mostly decompressed but appears grossly within normal limits. Spleen: Unremarkable Pancreas: Fatty atrophic changes to the pancreas. Adrenal Glands: Unremarkable Kidneys: Kidneys are grossly normal without calculi or hydronephrosis. Bladder: Grossly unremarkable for degree of distention. Bowel: Small hiatal hernia. Distended stomach. Small bowel and colon are normal in caliber and distribution. The appendix is unremarkable. Ascites: Absent Lymphadenopathy: No mesenteric, retroperitoneal or periportal lymphadenopathy. Abdominal Wall and Mesentery: Unremarkable. Vasculature: Vascular calcifications of the aorta. Evaluation of abdominal and pelvic vessels is limited due to lack of intravenous contrast. Pelvic Organs: Unremarkable Musculoskeletal: Multilevel degenerative changes of the spine. This is most prominent at L3-L4, L4-L5 and L5-S1. No aggressive focal bony lesions, acute fractures or dislocation. IMPRESSION: No acute abdominal or pelvic findings. Radiation optimization: All CT scans at this facility use at least one of these dose optimization techniques: automated exposure control mA and/or kV adjustment per patient size (includes targeted exams where dose is matched to clinical indication) or iterative reconstruction. EDURE(s): KIDUS - KIDNEY REASON: r/o obstuction ORDER NUMBER(s): [id number], ACCESSION NUMBER(s): [id number] INDICATION: r/o obstuction TECHNIQUE: Multiple real-time sonographic images of the kidneys and bladder were obtained. COMPARISON: None FINDINGS: RIGHT kidney measures 10.5 cm in length with normal parenchymal echotexture and cortical thickness. No evidence of nephrolithiasis or hydronephrosis. LEFT kidney measures 10.9 cm in length with normal parenchymal echotexture and cortical thickness. No evidence of nephrolithiasis or hydronephrosis. Moderately distended urinary bladder. Left ureteral jet identified. Prevoid volume 377.9 mL. No significant postvoid residual. IMPRESSION: 1. No evidence of hydronephrosis. 2. Moderately distended urinary bladder. EDURE(s): HWOCT - HEAD WITHOUT CONTRAST REASON: syncope ORDER NUMBER(s): [id number], ACCESSION NUMBER(s): [id number] EXAM: CT HEAD WITHOUT CONTRAST INDICATION: syncope TECHNIQUE: CT of the head without intravenous contrast. Radiation Dose : 1. Head: CT Dose: CTDI volume is 58.24 mGy. Dose-length product is 1.71 mGy*cm The dose indicators for CT are the volume Computed Tomography (CT) Dose Index (CTDIvol) and the Dose Length Product (DLP), and are measured in units of mGy and mGy-cm, respectively. These indicators are not patient dose, but values generated from the CT scanner acquisition factors. The report includes radiation exposure data for exposures received during this examination. COMPARISON: HEAD WITHOUT CONTRAST on DOS: 05/17/21 FINDINGS: There is no evidence of acute intracranial hemorrhage, extra-axial collection, mass effect, midline shift, herniation or hydrocephalus. The ventricles, sulci and cisterns are age appropriate. The medina-white differentiation is intact. The visualized paranasal sinuses and mastoid air cells are clear. The surrounding soft tissues and osseous structures are unremarkable. IMPRESSION: No acute intracranial abnormality. Radiation optimization: All CT scans at this facility use at least one of these dose optimization techniques: automated exposure control mA and/or kV adjustment per patient size (includes targeted exams where dose is matched to clinical indication) or iterative reconstruction. EDURE(s): CXRP - CHEST PORTABLE REASON: SOB ORDER NUMBER(s): [id number], ACCESSION NUMBER(s): [id number] CHEST RADIOGRAPH INDICATION: SOB TECHNIQUE: Single frontal view of the chest was obtained COMPARISON: CHEST PORTABLE on DOS: 05/20/21, CHEST PORTABLE on DOS: 05/18/21, CHEST PORTABLE on DOS: 05/17/21 FINDINGS: Lines and Tubes: None Lungs: No focal consolidation. Pleura: No effusion. No pneumothorax. Cardiomediastinal contours: Unremarkable Bones: No acute osseous abnormality. IMPRESSION: 1. No acute cardiopulmonary disease. 2. No significant change from 05/20/2021 EDURE(s): EKG - ELECTROCARDIGRAM ORDER NUMBER(s): [id number], ACCESSION NUMBER(s): [id number] [facility] Test Date: 2025-10-14 Test Time: 12:08:05 Pat Name: CASPER HARRISON Department: Room: [facility] Gender: M Atm Technician: [facility] : 1960 Requested By: JUAN MARIA Order Number: [id number] Reading MD: Chavez Magana Measurements Intervals Edison Rate: 86 P: -9 NV: 160 QRS: 3 QRSD: 140 T: 60 QT: 419 QTc: 502 Interpretive Statements Sinus rhythm Atrial premature complex Right bundle branch block Electronically Signed On 10-16-2025 8:20:59 PST by Chaevz Magana Please click the below link to view image of tracing. Operative Report DATE OF OPERATION: 10/15/25 PROCEDURE: Upper Endoscopy with biopsy. PREOPERATIVE INDICATION: The patient is a 64 -year-old male undergoing endoscopy for anemia and melena POSTOPERATIVE DIAGNOSES: 1. Mild gastritis involving the proximal body of the stomach and mild antral gastritis with superficial erosions and tiny ulcers 2. Otherwise normal examination of the 2nd and 3rd part of the duodenum with no fresh blood in the upper GI tract and good bile drainage PROCEDURE PERFORMED BY: Jamila Becker GI NURSE: Trisha SCOPE: Olympus videoendoscope. ASA CLASS: 3 PREOPERATIVE MEDICATIONS: Mac sedation, Marcin Thompson PROCEDURE IN DETAIL: After obtaining an informed consent, the patient was placed on left lateral decubitus position. The patient was then sedated with the above medications. A bite block was placed between his teeth. The endoscope was then passed through the oropharynx, into the esophagus, and through the stomach and pylorus up to the second and third part of the duodenum. The endoscope was then withdrawn. The 2nd and 3rd part of the duodenal and the duodenal bulb were normal. There was good bile drainage The pre-pyloric area antrum and distal body showed mild gastritis with pre- pyloric antral gastric erosions On retroflexion the patient had mild gastritis and a superficial erosion and tiny ulcer noted in the cardia of the stomach Gastric biopsies were obtained. There was no fresh or old blood in the upper GI tract. The endoscope was then withdrawn into distal esophagus Patient had no significant hiatal hernia no esophagitis. The remaining distal and proximal esophagus and oropharynx were unremarkable The patient tolerated the procedure well without difficulty. COMPLICATIONS : None SPECIMENS: Duodenal biopsies Gastric biopsies DISPOSITION: Transfer back to the floor Stable PLAN: 1. Await for biopsy result 2. Will place pt on Protonix 40 mg bid IV 3. Discontinue IV Protonix drip and octreotide drip 4. Start clear liquid diet advance as tolerated 5. Monitor H&H q.12 hours for another 24 hours 6. Once medically stabilized and outpatient elective colonoscopy would be scheduled Condition at Discharge: Stable Final Diagnosis/Problems List #Sepsis likely due to possible acute bacterial gastroenteritis #Acute NSTEMI likely type 2 possible due to severe anemia #Possible Acute Upper GI Bleeding #Acute Severe Anemia, due to acute GI blood loss #TANVIR due to VMN #Acute SVT/V-tach #CKD Stage IV #History of alcohol abuse #Obesity, grade 2 BMI 35.2 Discharge Disposition: Home SNF Discharge Will this Physician continue t: No Discharge Instruct/Medications Diet: Cardiac 2g Na,low cholest Activity: No Restrictions, As Tolerated Follow Up/Referral: Referral to Dr. Becker for Colonoscopy F/u with PCP in 1 week F/U in the D/C clinic Medications: Sulfate ferrosum 325mg po daily Sucralfate 1mg po Q6H Pantoprazol 40mg po bid Scheduled Atorvastatin Calcium (Atorvastatin Calcium), 1 TAB PO DAILY, (Reported) Duloxetine HCl (Duloxetine HCl), 1 CAP PO HS, (Reported) Ergocalciferol (Vitamin D), 1 CAP PO QWEEKLY, (Reported) Eszopiclone (Eszopiclone), 1 TAB PO DAILY, (Reported) Ferrous Sulfate (Ferrous Sulfate), 325 MG PO F Gabapentin (Gabapentin), 1 TAB PO TID, (Reported) Hydrocodone-Acetaminophen (Hydrocodone Bitartrate/AC 5-325 mg), 1 TAB PO QIDP Lisinopril (Lisinopril), 1 TAB PO BID, (Reported) Metoprolol Tartrate (Lopressor), 1 TAB PO DAILY, (Reported) Pantoprazole Sodium Sesquihydr (Pantoprazole Sodium), 40 MG PO BID Quetiapine Fumerate (Seroquel), 3 TAB PO HS, (Reported) Sucralfate (Carafate), 1 GM OR BID Valbenazine Tosylate (Ingrezza), 1 CAP PO DAILY, (Reported) Scheduled PRN Baclofen (Baclofen), 10 MG PO TID PRN Hydrocodone-Acetaminophen (Hydrocodone/Acetaminophen 5-325 mg), 1 TAB PO TID PRN for PAIN, (Reported) Ibuprofen Micronized (Ibuprofen), 1 TAB PO TID PRN for PAIN, (Reported) Discontinued Medications Aripiprazole (Abilify), 2 MG PO DAILY, (Reported) Eszopiclone (Lunesta), 3 MG PO QHSP, (Reported) Discontinued Reason: Prescription changed Fluoxetine Hcl (Fluoxetine Hcl), 20 MG PO DAILY, (Reported) Quetiapine Fumerate (Seroquel Xr), 200 MG PO HS, (Reported) Zolpidem Tartrate (Ambien), (Reported) Discharge Statement: "Patient was advised to return to the ER or call 911 if any headaches, dizziness, shortness of breath, chest pain, abdominal pain, bleeding, fevers, or worsening of medical condition. Patient was counseled about treatment plan, medications, possible side effects, patientverbalized understanding. All questions were answered to the best of my ability. This discharge took greater then 30 minutes in planning, reviewing documentation, counseling the patient, and discussing with other team members." ASSESSMENT ASSESSMENT Assessment #Sepsis likely due to possible acute bacterial gastroenteritis #Possible Acute Upper GI Bleeding #Acute Severe Anemia, due to acute GI blood loss #TANVIR due to VMN #Acute NSTEMI likely type 2 possible due to severe anemia #Acute SVT/V-tach #CKD Stage IV #History of alcohol abuse #Obesity, grade 2 BMI 35.2 Discharge plan with the patient for more than 30 minutes, the patient agrees with the plan. PCP: Dr. Martinez Case discussed with , patient and nurse Visit Coding STANDARD RES Billing Provider: FILIPE BELL MD Date of Service if different f: Oct 16, 2025 Common Visit Codes: 82043-HPS/OBS DISCH DAY >30min JUAN MARIA RESIDENT Oct 16, 2025 09:54
[2025-10-16] MEDS ORDERED: HYDR-4902 PO (10:39)
--- NOTE | 2025-10-16 10:49 | DVHPN2 ---
Progress Note Date Seen: Oct 16, 2025 Resident Creating Document: ISIDRO ODOM RESIDENT Has the PT tested + for MRSA If YES, has PT been informed?: No Medical Necessity Reason Pt with a Central, PICC or Fol: No Subjective Review of Systems Today, no acute complaints DC planning going on Objective vital signs Vital Sign Date Time Temp Pulse Resp B/P (MAP) Pulse Ox O2 Delivery O2 Flow Rate FiO2 10/16/25 09:02 73 152/79 10/16/25 08:31 98.7 17 94 98.7 10/15/25 20:00 Room Air* 0 21 Total Intake and Output 10/15/25 10/15/25 10/16/25 15:00 23:00 07:00 Intake Total 1651 ml 200 ml 598 ml Balance 1651 ml 200 ml 598 ml medications Current Medications Medications Dose Ordered Sig/New Route Start Time Stop Time Status Last Admin Dose Admin Metronidazole 100 ml @ 100 mls/hr Q8HR IV 10/13/25 02:10 10/16/25 06:10 100 MLS/HR Ceftriaxone Sodium 50 ml @ 100 mls/hr DAILY@09 IV 10/14/25 09:00 10/16/25 09:02 100 MLS/HR Pantoprazole Sodium 40 mg BID IV 10/13/25 10:00 10/16/25 09:01 40 MG Atorvastatin Calcium 80 mg HS PO 10/13/25 22:00 10/15/25 22:07 80 MG Sucralfate 1 gm TID@0600,1130,2200 PO 10/13/25 22:00 10/16/25 06:05 1 GM Iron Sucrose 110 ml @ 110 mls/hr DAILY@1200 IV 10/13/25 15:30 10/17/25 15:29 10/15/25 16:04 110 MLS/HR Acetaminophen 500 mg Q4HPRN PRN PO 10/13/25 16:30 Acetaminophen/ Hydrocodone Bitart 1 tab Q4HPRN PRN PO 10/13/25 16:30 10/16/25 04:55 1 TAB Morphine Sulfate 1 mg Q4HPRN PRN IV 10/13/25 16:30 Metoprolol Succinate 50 mg DAILY PO 10/15/25 10:00 10/16/25 09:02 50 MG Examination General: NAD, AAOX3 Chest: lung beach clear to auscultation Heart: RRR, no murmur Abdomen: non-distended,+ epigastric tenderness to palpation, +BS laboratory and microbiology Laboratory Tests 10/16/25 04:48 Test 10/16/25 04:48 Range/Units Serum Glucose 111 H 74-106 mg/dL Microbiology Date/Time Source Procedure Growth Status 10/12/25 23:51 Stool Clostridium difficile Toxin Assay - Final Complete 10/12/25 23:19 Voided Urine Urine Culture - Final Complete 10/12/25 20:05 Blood Blood Culture - Preliminary NO GROWTH AFTER 72 HOURS OF INCUBATION. Resulted Problem List/Assessment/Plan Problem List/Assessment/Plan #Mild gastritis involving the proximal body of the stomach and mild antral gastritis with superficial erosions and tiny ulcers #Heme positive stool #Melena # Epigastric abdominal pain Assessment plan s/p EGD, please advance diet as tolerated Patient is advised to continue f/u as outpatient for colonoscopy Await for biopsy result Please DC pt on Protonix 40 mg bid Case discussed with Dr Becker Plan discussed with: Patient, Other (rn) CC Plasma Assessment Blood Product Administration S: [id number] ISIDRO ODOM RESIDENT Oct 16, 2025 10:49
[2025-10-16 11:55] LABS: Potassium 4.2 mmol/L (3.5-5.1)
[2025-10-16 12:02] LABS: Magnesium 2.1 mg/dL (1.6-2.6)
[2025-10-16 13:00] VITALS: BP 148/88; PULSE 80; RESP 17; TEMP 99.5; O2SAT 96
[2025-10-16 13:37] VITALS: BP 148/88; PULSE 80; RESP 17; TEMP 98.7; O2SAT 96
[2025-10-16] MEDS ORDERED: FER325T PO (13:49)
[2025-10-16] MEDS ORDERED: PANT40T PO (13:49)
[2025-10-16] MEDS ORDERED: SUCR1TAB31 OR (13:49)
[2025-10-16] MEDS ORDERED: BACL10TA PO (13:49)
== END 2025-10-16 14:05 | disposition home or self-care (01) | DRG 871 ==
LOC: ER 19:17 → EDUNIT# 19:17 → EDBD 19:17 → OVERFLOW 23:50 → TELE-EAST 10-13 21:49
PROVIDERS: ADMIT Student in an Organized Health Care Education/Training Program; ATTEND Student in an Organized Health Care Education/Training Program
PROC: 30233N1 Transfusion of Nonautologous Red Blood Cells into Peripheral Vein, Percutaneous Approach (ICD-10-PCS; 2025-10-13)
PROC: 0DB98ZX Excision of Duodenum, Via Natural or Artificial Opening Endoscopic, Diagnostic (ICD-10-PCS; 2025-10-15)
PROC: 0DB68ZX Excision of Stomach, Via Natural or Artificial Opening Endoscopic, Diagnostic (ICD-10-PCS; 2025-10-15)
PROC: 30233K1 Transfusion of Nonautologous Frozen Plasma into Peripheral Vein, Percutaneous Approach (ICD-10-PCS; principal; 2025-10-15 15:06)
DX: A41.9 Sepsis, unspecified organism (principal); I21.A1 Myocardial infarction type 2; N17.0 Acute kidney failure with tubular necrosis; K25.4 Chronic or unspecified gastric ulcer with hemorrhage; E87.20 Acidosis, unspecified; I47.10 Supraventricular tachycardia, unspecified; D62 Acute posthemorrhagic anemia; N18.4 Chronic kidney disease, stage 4 (severe); A04.9 Bacterial intestinal infection, unspecified; I12.9 Hypertensive chronic kidney disease with stage 1 through stage 4 chronic kidney disease, or unspecified chronic kidney disease; E66.812 Obesity, class 2; F32.A Depression, unspecified; F25.9 Schizoaffective disorder, unspecified; I25.10 Atherosclerotic heart disease of native coronary artery without angina pectoris; Z68.36 Body mass index [BMI] 36.0-36.9, adult; F41.9 Anxiety disorder, unspecified; G89.29 Other chronic pain; E86.0 Dehydration; K29.70 Gastritis, unspecified, without bleeding; Z82.49 Family history of ischemic heart disease and other diseases of the circulatory system
CPT/HCPCS: 36415; 43239; 70450; 71045; 74176; 76775; 80048; 80053; 80061; 80307; 81001; 82270; 82306; 82570; 82607; 82728; 83036; 83540; 83550; 83605; 83690; 83735; 83880; 84132; 84156; 84300; 84443; 84484; 85014; 85018; 85025; 85045; 85048; 85610; 85652; 85730; 86141; 86850; 86900; 86901; 86920; 87040; 87045; 87086; 87177; 87427; 87493; 93005; 93306; 99291; G0378; J1756; J2003; J2405; J2470; J2543; J2704; J3480; J3490